=== PATIENT | female | born 1950 | race Caucasian/White ===

== ENCOUNTER 2018-06-26 14:56 | Emergency (ER) | payer MEDICARE, OTHER ==
[~2018-06-26] VITALS: Ht 154.9 cm; Wt 78.0 kg
[~2018-06-26 14:56] MED LIST: Calcium Magnes1 EAC1 PO; HARVONI 90-4001 EACH PO; HYDACE5 PO; HYDCHL25 PO; PROM25 PO; RANI150 PO; SPIR25 PO
[2018-06-26 16:43] LABS: BASOPHILS ABSOLUTE AUTO 0.05 K/mm3 (0.00-0.23); BASOPHILS PERCENT AUTO 1 % (0-2); EOSINOPHILS PERCENT AUTO 2 % (0-6); Hematocrit 42.3 % (33.0-51.0); Hemoglobin 14.4 g/dL (11.5-16.0); IMMATURE GRAN ABSOLUTE AUTO 0.01 K/mm3 (0.00-0.10); IMMATURE GRAN PERCENT AUTO 0 % (0-1); LYMPHOCYTES ABSOLUTE AUTO 2.24 K/mm3 (0.84-5.20); LYMPHOCYTES PERCENT AUTO 35 % (21-46); MONOCYTES ABSOLUTE AUTO 0.59 K/mm3 (0.16-1.47); MONOCYTES PERCENT AUTO 9 % (4-13); Mean Corpuscular HGB 31.9 pg (26.0-34.0); Mean Corpuscular Volume 94 fL (80-100); Mean Platelet Volume 10.3 fL (9.1-12.4); NEUTROPHILS ABSOLUTE AUTO 3.35 K/mm3 (1.96-9.15); NEUTROPHILS PERCENT AUTO 53 % (41-73); Platelet Count 119 K/mm3 (150-400); RDW Standard Deviation 44.6 fL (35.1-46.3); Red Blood Cell Count 4.51 M/mm3 (3.80-5.20); White Blood Cell Count 6.34 K/mm3 (4.00-11.30)
[2018-06-26 17:01] LABS: Alanine Aminotransfer (ALT/SGP 36 U/L (12-78); Albumin, Blood 3.7 g/dL (3.4-5.0); Albumin/Globulin Ratio 0.9 (0.8-1.8); Alk Phos 141 U/L (50-136); Anion Gap 8 mmol/L (6-16); Aspartate Aminotrans (AST/SGOT 35 U/L (12-37); Blood Urea Nitrogen 14 mg/dL (8-24); Bun/Creatinine Ratio 16.1 (12.0-20.0); CO2, Blood 26 mmol/L (21-32); Calcium, Blood 8.8 mg/dL (8.5-10.1); Chloride, Blood 107 mmol/L (98-108); Creatinine, Blood 0.87 mg/dL (0.40-1.00); Globulin, Blood 4.2 g/dL (2.2-4.0); Glomerular Filtration Rate >60 (60-); Glucose, Blood 81 mg/dL (70-99); Potassium, Blood 3.7 mmol/L (3.5-5.5); Sodium, Blood 141 mmol/L (136-145); Total Protein, Blood 7.9 g/dL (6.4-8.2); Troponin I <0.015 ng/mL (0.000-0.040)
[2018-06-26] MEDS ORDERED: FURO20 (17:12)
[2018-06-26] MEDS ORDERED: Omeprazole20 M1 (17:12)
[2018-06-26 17:14] LABS: Source, Urine Clean Catch
[2018-06-26 17:19] LABS: Bilirubin, Urine Neg (Neg); Blood, Urine 1+ (Neg); Glucose Qualitative, Urine Neg (Neg); Ketones, Urine Neg (Neg); Leukocyte Esterase, Urine 1+ (Neg); Nitrite, Urine Neg (Neg); Protein, Urine Neg (Neg); Urobilinogen, Urine NORM (Normal)
[2018-06-26 17:25] LABS: Appearance, Urine Hazy (Clear); Color, Urine Yellow (P-Yellow)
[2018-06-26 17:27] LABS: Bacteria Few /hpf; Red Blood Cells, Urine 0-2 /hpf (0-2); Squamous Epithelial Cells Few /hpf (Few)
== END 2018-06-26 18:10 | disposition home or self-care (01) ==
LOC: ER 14:56
PROVIDERS: Emergency Medicine; Physician Assistant
DX: R07.89 Other chest pain (principal); I10 Essential (primary) hypertension; Z88.0 Allergy status to penicillin; Z88.2 Allergy status to sulfonamides; Z88.1 Allergy status to other antibiotic agents; Z79.899 Other long term (current) drug therapy; Z87.891 Personal history of nicotine dependence
CPT/HCPCS: 36415; 71046; 80053; 81001; 84484; 85025; 87086; 93005; 93010; 99284-25

== ENCOUNTER 2019-04-08 03:21 | Emergency (ER) | payer MEDICARE, OTHER ==
[~2019-04-08] VITALS: Ht 162.6 cm; Wt 74.8 kg
[~2019-04-08 03:21] MED LIST changes: +Aspirin EC81 MG PO; +FURO20 PO; +LOSA25 PO; +MAGOXI400 PO; +Multivitamin1 EAC1 PO; +Omeprazole20 M1 PO
[2019-07-31] MEDS ORDERED: ONE DAILY MULT PO (10:37)
[2019-07-31] MEDS ORDERED: Natrol 5-Htp50 MG PO (10:38)
[2019-07-31] MEDS ORDERED: Calcium Magnes1 EAC1 PO (10:38)
== END 2019-04-08 05:38 | disposition home or self-care (01) ==
LOC: ER 03:21
DX: M79.671 Pain in right foot (principal); Z88.0 Allergy status to penicillin; Z88.2 Allergy status to sulfonamides; Z88.1 Allergy status to other antibiotic agents; Z79.899 Other long term (current) drug therapy; Z79.82 Long term (current) use of aspirin; Z87.891 Personal history of nicotine dependence
CPT/HCPCS: 99283

== ENCOUNTER 2019-08-07 10:02 | Day surgery (SDC) | payer MEDICARE, OTHER ==
[~2019-08-07] VITALS: Ht 154.9 cm; Wt 77.1 kg
[~2019-08-07 10:02] MED LIST changes: +Natrol 5-Htp50 MG PO; +ONE DAILY MULT PO
== END 2019-08-07 11:42 | disposition home or self-care (01) ==
LOC: ORSCSDS 10:02
PROVIDERS: Internal Medicine Gastroenterology
PROC: 0DJ08ZZ Inspection of Upper Intestinal Tract, Via Natural or Artificial Opening Endoscopic (ICD-10-PCS; principal; 2019-08-07 12:00)
DX: I85.00 Esophageal varices without bleeding (principal); K74.60 Unspecified cirrhosis of liver; K22.2 Esophageal obstruction; K76.6 Portal hypertension; K31.89 Other diseases of stomach and duodenum; J45.909 Unspecified asthma, uncomplicated; I10 Essential (primary) hypertension; E66.9 Obesity, unspecified; Z68.32 Body mass index [BMI] 32.0-32.9, adult; Z79.899 Other long term (current) drug therapy
CPT/HCPCS: J2704; J7120

== ENCOUNTER 2019-11-02 19:48 | Inpatient (IN) | payer MEDICARE, OTHER ==
[~2019-11-02] VITALS: Ht 154.9 cm; Wt 77.8 kg
[2019-11-02 20:40] LABS: BASOPHILS ABSOLUTE AUTO 0.05 K/mm3 (0.00-0.23); BASOPHILS PERCENT AUTO 1 % (0-2); EOSINOPHILS ABSOLUTE AUTO 0.11 K/mm3 (0.00-0.68); EOSINOPHILS PERCENT AUTO 2 % (0-6); Hemoglobin 15.2 g/dL (11.5-16.0); IMMATURE GRAN ABSOLUTE AUTO 0.01 K/mm3 (0.00-0.10); IMMATURE GRAN PERCENT AUTO 0 % (0-1); LYMPHOCYTES ABSOLUTE AUTO 1.12 K/mm3 (0.84-5.20); LYMPHOCYTES PERCENT AUTO 21 % (21-46); MONOCYTES ABSOLUTE AUTO 0.27 K/mm3 (0.16-1.47); MONOCYTES PERCENT AUTO 5 % (4-13); Mean Corpuscular HGB 31.3 pg (26.0-34.0); Mean Corpuscular Volume 95 fL (80-100); Mean Platelet Volume 9.6 fL (9.1-12.4); NEUTROPHILS PERCENT AUTO 72 % (41-73); Platelet Count 146 K/mm3 (150-400); RDW Coefficient Variation 13.1 % (11.7-14.2); RDW Standard Deviation 45.6 fL (35.1-46.3); Red Blood Cell Count 4.86 M/mm3 (3.80-5.20); White Blood Cell Count 5.46 K/mm3 (4.00-11.30)
[2019-11-02 20:55] LABS: International Normalized Ratio 1.07; Prothrombin Time Results 11.3 Sec (9.7-11.5)
[2019-11-02] MEDS ORDERED: ASCO500 PO (20:59)
[2019-11-02 21:03] LABS: Alanine Aminotransfer (ALT/SGP 107 U/L (12-78); Alk Phos 137 U/L (50-136); Anion Gap 6 mmol/L (6-16); Aspartate Aminotrans (AST/SGOT 88 U/L (12-37); Bilirubin, Direct 0.4 mg/dL (0.0-0.3); Bilirubin, Indirect 1.2 mg/dL (0.1-0.7); Bilirubin, Total 1.6 mg/dL (0.1-1.0); Blood Urea Nitrogen 13 mg/dL (8-24); Bun/Creatinine Ratio 16.6 (12.0-20.0); CO2, Blood 27 mmol/L (21-32); Chloride, Blood 105 mmol/L (98-108); Creatinine, Blood 0.78 mg/dL (0.40-1.00); Globulin, Blood 4.1 g/dL (2.2-4.0); Glomerular Filtration Rate >60 (60-); Glucose, Blood 117 mg/dL (70-99); Potassium, Blood 3.5 mmol/L (3.5-5.5); Sodium, Blood 138 mmol/L (136-145); Total Protein, Blood 8.1 g/dL (6.4-8.2); Troponin I <0.015 ng/mL (0.000-0.040)
[2019-11-02 21:12] LABS: Source, Urine Clean Catch
[2019-11-02 21:14] LABS: Bilirubin, Urine Neg (Neg); Blood, Urine 1+ (Neg); Glucose Qualitative, Urine Neg (Neg); Ketones, Urine Neg (Neg); Leukocyte Esterase, Urine Neg (Neg); Nitrite, Urine Neg (Neg); Protein, Urine Neg (Neg); Specific Gravity, Urine 1.015 (1.003-1.022); Urobilinogen, Urine 1+ (Normal)
[2019-11-02 21:16] LABS: Appearance, Urine Clear (Clear); Color, Urine Yellow (P-Yellow)
[2019-11-02 21:21] LABS: Bacteria Rare /hpf; Red Blood Cells, Urine 0-2 /hpf (0-2); Squamous Epithelial Cells Few /hpf (Few); White Blood Cells, Urine 0-2 /hpf (0-5)
--- NOTE | 2019-11-03 04:06 | NUR ---
SHIFT SUMMARY PT NEW ADMIT THIS SHIFT. AAOX4. NPO THIS AM. PT REPORTING ABD DISCOMFORT X3 DAYS, CONTROLLED WITH 50mcg FENTANYL X1 SINCE ADMISSION TO FLOOR. NO NAUSEA/EMESIS. PT ORIENTED TO ROOM + CALL LIGHT USE. RESTING WELL AT THIS TIME, IVF PER ORDERS WITH CALL LIGHT IN REACH.
--- NOTE | 2019-11-03 14:00 | NUR ---
PT RETURNED TO ROOM FROM PACU A&OX4, VSS, S/P LAP CARMEN WITH 4 GAUZE DRESSINGS, ELIZABETH DRAIN W/SS DRAINAGE, AMB SBA TO BRP, VOIDING WELL, DENIES PAIN AT THIS TIME, JUDITH PO CL DIET.
--- NOTE | 2019-11-03 16:08 | NUR ---
SHIFT SUMMARY PT A&OX4, VSS, S/P LAP CARMEN, 4 GAUZE SITES CDI, ELIZABETH W/SS DRAINAGE. PAIN MANAGED WITH 5 MG OXY. DENIES N&V AT THIS TIME; ZOFRAN GIVEN 1X. VOIDING WELL. AMB SBA TO BRP. REPOSITIONS SELF WELL. WILL REPORT TO ONCOMING NOC RN.
--- NOTE | 2019-11-04 04:55 | NUR ---
SHIFT SUMMARY PT POD#1 LAP CARMEN. AAOX4. ABD INCISIONS WITH GAUZE C/D/I + ELIZABETH SECURE/DRAINING 55cc AMOUNT SS. DISCOMFORT CONTROLLED WITH 1 ROXICODONE Q4-5P. NO NAUSEA/EMESIS. PT UP AMBULATING IN HALLS THIS AM, TOLERATING DIET WELL + GOOD URINE OUTPUT. NO ACUTE CHANGES OVER NIGHT.
[2019-11-04 05:09] LABS: BASOPHILS ABSOLUTE AUTO 0.03 K/mm3 (0.00-0.23); BASOPHILS PERCENT AUTO 0 % (0-2); EOSINOPHILS ABSOLUTE AUTO 0.02 K/mm3 (0.00-0.68); EOSINOPHILS PERCENT AUTO 0 % (0-6); Hematocrit 42.2 % (33.0-51.0); Hemoglobin 13.8 g/dL (11.5-16.0); IMMATURE GRAN ABSOLUTE AUTO 0.03 K/mm3 (0.00-0.10); IMMATURE GRAN PERCENT AUTO 0 % (0-1); LYMPHOCYTES ABSOLUTE AUTO 1.12 K/mm3 (0.84-5.20); LYMPHOCYTES PERCENT AUTO 13 % (21-46); MONOCYTES PERCENT AUTO 5 % (4-13); Mean Corpuscular HGB 31.5 pg (26.0-34.0); Mean Corpuscular HGB Conc 32.7 g/dL (31.5-36.5); Mean Corpuscular Volume 96 fL (80-100); Mean Platelet Volume 9.9 fL (9.1-12.4); NEUTROPHILS ABSOLUTE AUTO 7.08 K/mm3 (1.96-9.15); NEUTROPHILS PERCENT AUTO 82 % (41-73); Platelet Count 129 K/mm3 (150-400); RDW Standard Deviation 46.8 fL (35.1-46.3); Red Blood Cell Count 4.38 M/mm3 (3.80-5.20); White Blood Cell Count 8.68 K/mm3 (4.00-11.30)
[2019-11-04 05:31] LABS: Alanine Aminotransfer (ALT/SGP 224 U/L (12-78); Albumin, Blood 3.1 g/dL (3.4-5.0); Albumin/Globulin Ratio 0.9 (0.8-1.8); Alk Phos 118 U/L (50-136); Anion Gap 7 mmol/L (6-16); Aspartate Aminotrans (AST/SGOT 233 U/L (12-37); Bilirubin, Total 4.6 mg/dL (0.1-1.0); Blood Urea Nitrogen 11 mg/dL (8-24); Bun/Creatinine Ratio 14.1 (12.0-20.0); CO2, Blood 24 mmol/L (21-32); Calcium, Blood 8.5 mg/dL (8.5-10.1); Chloride, Blood 110 mmol/L (98-108); Creatinine, Blood 0.78 mg/dL (0.40-1.00); Globulin, Blood 3.5 g/dL (2.2-4.0); Glomerular Filtration Rate >60 (60-); Glucose, Blood 115 mg/dL (70-99); Potassium, Blood 4.3 mmol/L (3.5-5.5); Sodium, Blood 141 mmol/L (136-145); Total Protein, Blood 6.6 g/dL (6.4-8.2)
--- NOTE | 2019-11-04 17:05 | NUR ---
SHIFT SUMMARY PT A&OX4, VSS, POD1 LAP CARMEN, 4 GAUZE DRESSINGS, ELIZABETH WITH 60 MLS OUT TODAY. PAIN MANAGED WITH FENT 12.5 AND OXYCODONE 5 MG. PT WAS NPO FROM 1000 TO 1400 WHEN SHE WENT FOR MRI. PLAN: MRI SHOWS NO NEED FOR REFERRAL [facility]. LAB DRAW IN AM AND POSSIBLE CONSULT WITH GI DR KIM FOR LIVER ENZYMES ELEVATION. JUDITH PO, DENIES N&V. VOIDING WELL. AMB INDEPENDENT TO [facility]. WILL REPORT TO ONCOMING NOC RN.
[2019-11-05 04:35] LABS: Alanine Aminotransfer (ALT/SGP 138 U/L (12-78); Albumin, Blood 2.8 g/dL (3.4-5.0); Albumin/Globulin Ratio 0.9 (0.8-1.8); Alk Phos 97 U/L (50-136); Anion Gap 5 mmol/L (6-16); Aspartate Aminotrans (AST/SGOT 91 U/L (12-37); Bilirubin, Total 0.8 mg/dL (0.1-1.0); Blood Urea Nitrogen 11 mg/dL (8-24); Bun/Creatinine Ratio 13.3 (12.0-20.0); CO2, Blood 28 mmol/L (21-32); Calcium, Blood 8.1 mg/dL (8.5-10.1); Chloride, Blood 107 mmol/L (98-108); Creatinine, Blood 0.82 mg/dL (0.40-1.00); Globulin, Blood 3.1 g/dL (2.2-4.0); Glomerular Filtration Rate >60 (60-); Glucose, Blood 105 mg/dL (70-99); Potassium, Blood 3.7 mmol/L (3.5-5.5); Sodium, Blood 140 mmol/L (136-145); Total Protein, Blood 5.9 g/dL (6.4-8.2)
--- NOTE | 2019-11-05 07:18 | NUR ---
11/05/19 0718 Maryellen Blanco VERIFICATIONS: EDIT CHART.
--- NOTE | 2019-11-05 08:06 | NUR ---
SHIFT SUMMARY PT POD#2 LAP CARMEN. AAOX4. DISCOMFORT CONTROLLED WITH 1 ROXICODONE X2 THIS SHIFT. NO NAUSEA/EMESIS. ABD INCISION WITH GAUZE C/D/I X3 WITH ELIZABETH WITH 35cc SS OUT. PT RESTED WELL T/O NIGHT. INDEPENDENT. OUT IN HALLS TO AMBULATE. NO ACUTE CHANGES OVER NIGHT. PT RESTING AT THIS TIME, REPORT TO DAY SHIFT RN, CALL LIGHT WITHIN REACH.
[2019-11-05] MEDS ORDERED: OXYC5 PO (09:33)
[2019-11-05] MEDS ORDERED: MIRALAX17 GM PO (09:33)
--- NOTE | 2019-11-05 10:24 | NUR ---
DISCHARGE PT WAS D/C'D VIA W/C. SCRIPT GIVEN. PAIN WELL CONTROLLED, DECLINED MEDS PRIOR TO D/C. TOLERATING DIET, VOIDING, AND PASSING GAS. DISCUSSED BOWEL CARE.
== END 2019-11-05 10:17 | disposition home or self-care (01) | DRG 419 ==
LOC: ER 19:48 → SURS 19:49
PROVIDERS: Physician Assistant; ADMIT Surgery
PROC: BF03YZZ Plain Radiography of Gallbladder and Bile Ducts using Other Contrast (ICD-10-PCS; 2019-11-03)
PROC: 3E02340 Introduction of Influenza Vaccine into Muscle, Percutaneous Approach (ICD-10-PCS; 2019-11-03)
PROC: 0FT44ZZ Resection of Gallbladder, Percutaneous Endoscopic Approach (ICD-10-PCS; principal; 2019-11-03 10:30)
DX: K80.62 Calculus of gallbladder and bile duct with acute cholecystitis without obstruction (principal); K74.60 Unspecified cirrhosis of liver; I10 Essential (primary) hypertension; Z88.1 Allergy status to other antibiotic agents; Z88.0 Allergy status to penicillin; Z88.2 Allergy status to sulfonamides; Z87.891 Personal history of nicotine dependence; Z86.19 Personal history of other infectious and parasitic diseases; Z23 Encounter for immunization
CPT/HCPCS: 36415; 74181; 74300; 76705; 80048; 80053; 80076; 81001; 83690; 84484; 85025; 85610; 88304; 90686; 93005; 93010; 96365; 96372; 96375; 96376; 99285-25; C1729; G0008; G0378; J0694; J1100; J1650; J1885; J2405; J2704; J2710; J3010; J7030; J7120

== ENCOUNTER → 2019-11-29 | Outpatient (CLI) | payer MEDICARE, OTHER ==
[~2019-11-29] MED LIST changes: +ASCO500 PO; +MIRALAX17 GM PO; +OXYC5 PO
[2019-11-29 10:16] LABS: BASOPHILS ABSOLUTE AUTO 0.08 K/mm3 (0.00-0.23); BASOPHILS PERCENT AUTO 1 % (0-2); EOSINOPHILS ABSOLUTE AUTO 0.24 K/mm3 (0.00-0.68); EOSINOPHILS PERCENT AUTO 4 % (0-6); Hematocrit 44.1 % (33.0-51.0); Hemoglobin 14.5 g/dL (11.5-16.0); IMMATURE GRAN ABSOLUTE AUTO 0.03 K/mm3 (0.00-0.10); IMMATURE GRAN PERCENT AUTO 1 % (0-1); LYMPHOCYTES ABSOLUTE AUTO 1.99 K/mm3 (0.84-5.20); LYMPHOCYTES PERCENT AUTO 34 % (21-46); MONOCYTES ABSOLUTE AUTO 0.49 K/mm3 (0.16-1.47); MONOCYTES PERCENT AUTO 8 % (4-13); Mean Corpuscular HGB 31.4 pg (26.0-34.0); Mean Corpuscular HGB Conc 32.9 g/dL (31.5-36.5); Mean Corpuscular Volume 96 fL (80-100); Mean Platelet Volume 10.1 fL (9.1-12.4); NEUTROPHILS ABSOLUTE AUTO 3.08 K/mm3 (1.96-9.15); NEUTROPHILS PERCENT AUTO 52 % (41-73); Platelet Count 143 K/mm3 (150-400); RDW Coefficient Variation 13.2 % (11.7-14.2); RDW Standard Deviation 46.5 fL (35.1-46.3); Red Blood Cell Count 4.62 M/mm3 (3.80-5.20); White Blood Cell Count 5.91 K/mm3 (4.00-11.30)
[2019-11-29 10:36] LABS: Alanine Aminotransfer (ALT/SGP 31 U/L (12-78); Albumin, Blood 3.8 g/dL (3.4-5.0); Alk Phos 103 U/L (50-136); Anion Gap 7 mmol/L (6-16); Aspartate Aminotrans (AST/SGOT 29 U/L (12-37); Bilirubin, Total 0.9 mg/dL (0.1-1.0); Blood Urea Nitrogen 15 mg/dL (8-24); Bun/Creatinine Ratio 17.5 (12.0-20.0); CO2, Blood 28 mmol/L (21-32); Calcium, Blood 9.4 mg/dL (8.5-10.1); Chloride, Blood 110 mmol/L (98-108); Creatinine, Blood 0.86 mg/dL (0.40-1.00); Globulin, Blood 3.9 g/dL (2.2-4.0); Glomerular Filtration Rate >60 (60-); Glucose, Blood 100 mg/dL (70-99); Potassium, Blood 3.5 mmol/L (3.5-5.5); Sodium, Blood 145 mmol/L (136-145); Total Protein, Blood 7.7 g/dL (6.4-8.2)
== END | disposition home or self-care (01) ==
LOC: LAB 10:05 → LAB SHORT 10:05
PROVIDERS: Nurse Practitioner Family
DX: R07.9 Chest pain, unspecified (principal)
CPT/HCPCS: 80053; 85025

== ENCOUNTER 2020-01-15 21:41 | Observation (INO) | payer MEDICARE, OTHER ==
[~2020-01-15] VITALS: Ht 154.9 cm; Wt 77.2 kg
[2020-01-15 22:10] LABS: BASOPHILS ABSOLUTE AUTO 0.06 K/mm3 (0.00-0.23); BASOPHILS PERCENT AUTO 1 % (0-2); EOSINOPHILS ABSOLUTE AUTO 0.09 K/mm3 (0.00-0.68); EOSINOPHILS PERCENT AUTO 1 % (0-6); Hematocrit 45.1 % (33.0-51.0); IMMATURE GRAN ABSOLUTE AUTO 0.02 K/mm3 (0.00-0.10); IMMATURE GRAN PERCENT AUTO 0 % (0-1); LYMPHOCYTES ABSOLUTE AUTO 2.01 K/mm3 (0.84-5.20); LYMPHOCYTES PERCENT AUTO 24 % (21-46); MONOCYTES ABSOLUTE AUTO 0.67 K/mm3 (0.16-1.47); MONOCYTES PERCENT AUTO 8 % (4-13); Mean Corpuscular HGB 31.3 pg (26.0-34.0); Mean Corpuscular HGB Conc 33.3 g/dL (31.5-36.5); Mean Corpuscular Volume 94 fL (80-100); Mean Platelet Volume 9.9 fL (9.1-12.4); NEUTROPHILS ABSOLUTE AUTO 5.41 K/mm3 (1.96-9.15); NEUTROPHILS PERCENT AUTO 66 % (41-73); Platelet Count 163 K/mm3 (150-400); RDW Standard Deviation 45.1 fL (35.1-46.3); White Blood Cell Count 8.26 K/mm3 (4.00-11.30)
[2020-01-15 22:30] LABS: Alanine Aminotransfer (ALT/SGP 43 U/L (12-78); Alk Phos 132 U/L (50-136); Anion Gap 7 mmol/L (6-16); Aspartate Aminotrans (AST/SGOT 36 U/L (12-37); Bilirubin, Total 1.2 mg/dL (0.1-1.0); Blood Urea Nitrogen 15 mg/dL (8-24); Bun/Creatinine Ratio 19.8 (12.0-20.0); CO2, Blood 26 mmol/L (21-32); Calcium, Blood 9.3 mg/dL (8.5-10.1); Chloride, Blood 107 mmol/L (98-108); Creatinine, Blood 0.76 mg/dL (0.40-1.00); Globulin, Blood 4.2 g/dL (2.2-4.0); Glomerular Filtration Rate >60 (60-); Glucose, Blood 118 mg/dL (70-99); Potassium, Blood 3.9 mmol/L (3.5-5.5); Sodium, Blood 140 mmol/L (136-145); Total Protein, Blood 8.2 g/dL (6.4-8.2)
[2020-01-16 02:07] LABS: Source, Urine Clean Catch
[2020-01-16 02:09] LABS: Bilirubin, Urine Neg (Neg); Blood, Urine 1+ (Neg); Glucose Qualitative, Urine Neg (Neg); Ketones, Urine Neg (Neg); Leukocyte Esterase, Urine Neg (Neg); Nitrite, Urine Neg (Neg); Protein, Urine Neg (Neg); Specific Gravity, Urine 1.005 (1.003-1.022); Urobilinogen, Urine 1+ (Normal)
[2020-01-16 02:14] LABS: Appearance, Urine Clear (Clear); Color, Urine Yellow (P-Yellow)
[2020-01-16 02:19] LABS: Bacteria Few /hpf; Red Blood Cells, Urine 0-2 /hpf (0-2); Squamous Epithelial Cells Not Seen /hpf (Few); White Blood Cells, Urine 0-2 /hpf (0-5)
--- NOTE | 2020-01-16 03:40 | NUR ---
FACILITY COORDINATOR REPORT PT NEW ADMIT FROM ER. ARRIVED TO UNIT VIA STRETCHER AT 0039. PT WAS INTRODUCED TO ROOM AND STAFF. A/O X4. NO FACIAL DROOP OR SLURRED SPEECH NOTED. HOWEVER, PT STATES SHE CAN FEEL SOME R EYE LID DROOPING. DENIES PAIN, NAUSEA, SOB. VITALS STABLE. CALL LIGHT WITHIN REACH. PLEASANT AND COOPERATIVE.
[2020-01-16 10:15] LABS: Hematocrit 40.6 % (33.0-51.0); Hemoglobin 13.5 g/dL (11.5-16.0); Mean Corpuscular HGB 31.6 pg (26.0-34.0); Mean Corpuscular HGB Conc 33.3 g/dL (31.5-36.5); Mean Corpuscular Volume 95 fL (80-100); Mean Platelet Volume 10.1 fL (9.1-12.4); Platelet Count 119 K/mm3 (150-400); RDW Coefficient Variation 13.2 % (11.7-14.2); RDW Standard Deviation 45.8 fL (35.1-46.3); Red Blood Cell Count 4.27 M/mm3 (3.80-5.20); White Blood Cell Count 4.89 K/mm3 (4.00-11.30)
[2020-01-16 10:33] LABS: Alanine Aminotransfer (ALT/SGP 37 U/L (12-78); Albumin, Blood 3.4 g/dL (3.4-5.0); Alk Phos 103 U/L (50-136); Anion Gap 6 mmol/L (6-16); Aspartate Aminotrans (AST/SGOT 28 U/L (12-37); Bilirubin, Total 1.3 mg/dL (0.1-1.0); Blood Urea Nitrogen 12 mg/dL (8-24); Bun/Creatinine Ratio 16.1 (12.0-20.0); CO2, Blood 26 mmol/L (21-32); Calcium, Blood 8.6 mg/dL (8.5-10.1); Chloride, Blood 111 mmol/L (98-108); Creatinine, Blood 0.75 mg/dL (0.40-1.00); Globulin, Blood 3.4 g/dL (2.2-4.0); Glomerular Filtration Rate >60 (60-); Glucose, Blood 115 mg/dL (70-99); Potassium, Blood 3.8 mmol/L (3.5-5.5); Sodium, Blood 143 mmol/L (136-145); Total Protein, Blood 6.8 g/dL (6.4-8.2)
--- NOTE | 2020-01-16 15:27 | NUR ---
Echocardiogram completed.
--- NOTE | 2020-01-16 19:00 | NUR ---
PT. SITTING IN BED, A&O NO S/S OF DISTRESS. PT. SPOUSE CALLED ME TO THE ROOM TO WITNESS ONE OF HER TIA'S. PT. WAS SITTING UP STARING STRAIGHT AHEAD, WAS ABLE TO TALK TO ME BUT SLOWLY. APPEARED TO ME THIS IS MORE OF A SEIZURE ACTIVITY THAN A TIA. THE SCENIC ARTIST FELT THE SAME WAY AFTER HE WITNESSED ONE. ONLY TWO EPISODE THIS SHIFT. MAYBE A NEUROLOGY APPOINTMENT AN OUTPATIENT WOULD BE IN ORDER. PT. HAS HAD NO PAIN THIS SHIFT.
--- NOTE | 2020-01-17 05:53 | NUR ---
SHIFT SUMMARY: VSS. AFEB. A/OX3. MAKES NEEDS KNOWN. NO REPORTS OF SLOWED THINKING/SLOWED RESPONSE, OR UNRESPONSIVENESS TONIGHT. PT TO HAVE MRI TODAY. NO ACUTE CHANGES OVERNIGHT. WILL CONT TO MONITOR.
[2020-01-17] MEDS ORDERED: ATORVASTATIN CA40 M1 PO (11:18)
[2020-01-17] MEDS ORDERED: ASPI81CH PO (11:18)
--- NOTE | 2020-01-17 11:37 | NUR ---
DISCHARGE INSTRUCTIONS GIVEN TO PATIENT WITH AT BEDSIDE. EDUCATIONAL MATERIAL PROVIDED. IV's X2 REMOVED AND TELE BOX DISCONTINUED AND RETURNED TO PCU. PATIENT IN ROOM GETTING READY TO DISCHARGE HOME. TO TRANSPORT PATIENT HOME.
--- NOTE | 2020-01-17 11:42 | NUR ---
PATIENT DISCHARGED HOME AT 1142. NURSE ASSISTED PATIENT OUT TO VEHICLE IN WHEELCHAIR.
== END 2020-01-17 12:00 | disposition home or self-care (01) ==
LOC: ER 21:41 → MEDS 21:42
PROVIDERS: Nurse Practitioner; ADMIT Internal Medicine
DX: G45.9 Transient cerebral ischemic attack, unspecified (principal); K74.60 Unspecified cirrhosis of liver; I10 Essential (primary) hypertension; K21.9 Gastro-esophageal reflux disease without esophagitis; Z79.899 Other long term (current) drug therapy; Z88.8 Allergy status to other drugs, medicaments and biological substances; Z88.2 Allergy status to sulfonamides; Z88.0 Allergy status to penicillin; Z88.1 Allergy status to other antibiotic agents
CPT/HCPCS: 36415; 70450; 70496; 70498; 70551; 80053; 81001; 82947; 85025; 85027; 93005; 93010; 93306; 96360; 96361; 96372; 99285-25; A9270-GY; G0378; J1650; J7030; Q9967

== ENCOUNTER 2020-05-20 12:02 | Day surgery (SDC) | payer MEDICARE, OTHER ==
[~2020-05-20] VITALS: Ht 154.9 cm; Wt 77.7 kg
[~2020-05-20 12:02] MED LIST changes: +ASPI81CH PO; +ATORVASTATIN CA40 M1 PO
== END 2020-05-20 13:40 | disposition home or self-care (01) ==
LOC: ORSCSDS 12:02
PROVIDERS: Internal Medicine Gastroenterology
PROC: 0DJ08ZZ Inspection of Upper Intestinal Tract, Via Natural or Artificial Opening Endoscopic (ICD-10-PCS; principal; 2020-05-20 13:30)
DX: I85.00 Esophageal varices without bleeding (principal); K44.9 Diaphragmatic hernia without obstruction or gangrene; K22.2 Esophageal obstruction; J45.909 Unspecified asthma, uncomplicated; F41.9 Anxiety disorder, unspecified; K21.9 Gastro-esophageal reflux disease without esophagitis; K74.60 Unspecified cirrhosis of liver; Z87.891 Personal history of nicotine dependence; E66.9 Obesity, unspecified; Z68.31 Body mass index [BMI] 31.0-31.9, adult; Z79.899 Other long term (current) drug therapy
CPT/HCPCS: J2704; J7120

== ENCOUNTER 2021-04-09 15:55 | Emergency (ER) | payer MEDICARE, OTHER ==
[~2021-04-09] VITALS: Ht 154.9 cm; Wt 77.1 kg
[2021-04-09] MEDS ORDERED: LOSA50 PO (16:18)
[2021-04-09] MEDS ORDERED: Aldactone50 MG PO (16:18)
[2021-04-09] MEDS ORDERED: OXYC5 PO (18:37)
== END 2021-04-09 19:13 | disposition home or self-care (01) ==
LOC: ER 15:55
DX: S92.321A Displaced fracture of second metatarsal bone, right foot, initial encounter for closed fracture (principal); S92.331A Displaced fracture of third metatarsal bone, right foot, initial encounter for closed fracture; S92.341A Displaced fracture of fourth metatarsal bone, right foot, initial encounter for closed fracture; S92.351A Displaced fracture of fifth metatarsal bone, right foot, initial encounter for closed fracture; S20.212A Contusion of left front wall of thorax, initial encounter; S09.90XA Unspecified injury of head, initial encounter; I10 Essential (primary) hypertension; Z87.891 Personal history of nicotine dependence; W17.89XA Other fall from one level to another, initial encounter; Y92.008 Other place in unspecified non-institutional (private) residence as the place of occurrence of the external cause
CPT/HCPCS: 29515; 70450; 71101; 72100; 73610; 73630; 99284-25; A9270

== ENCOUNTER 2021-04-14 19:15 | Emergency (ER) | payer MEDICARE, OTHER ==
[~2021-04-14 19:15] MED LIST changes: +Aldactone50 MG PO; +LOSA50 PO
[2021-04-14 21:54] LABS: BASOPHILS ABSOLUTE AUTO 0.06 K/mm3 (0.00-0.23); BASOPHILS PERCENT AUTO 1 % (0-2); EOSINOPHILS ABSOLUTE AUTO 0.16 K/mm3 (0.00-0.68); EOSINOPHILS PERCENT AUTO 3 % (0-6); Hematocrit 39.4 % (33.0-51.0); Hemoglobin 13.2 g/dL (11.5-16.0); IMMATURE GRAN ABSOLUTE AUTO 0.01 K/mm3 (0.00-0.10); IMMATURE GRAN PERCENT AUTO 0 % (0-1); LYMPHOCYTES ABSOLUTE AUTO 1.31 K/mm3 (0.84-5.20); LYMPHOCYTES PERCENT AUTO 26 % (21-46); MONOCYTES ABSOLUTE AUTO 0.47 K/mm3 (0.16-1.47); MONOCYTES PERCENT AUTO 9 % (4-13); Mean Corpuscular HGB 30.1 pg (26.0-34.0); Mean Corpuscular HGB Conc 33.5 g/dL (31.5-36.5); Mean Corpuscular Volume 90 fL (80-100); Mean Platelet Volume 9.7 fL (9.1-12.4); NEUTROPHILS ABSOLUTE AUTO 3.06 K/mm3 (1.96-9.15); NEUTROPHILS PERCENT AUTO 60 % (41-73); Platelet Count 144 K/mm3 (150-400); RDW Coefficient Variation 13.8 % (11.7-14.2); RDW Standard Deviation 45.8 fL (35.1-46.3); Red Blood Cell Count 4.38 M/mm3 (3.80-5.20); White Blood Cell Count 5.07 K/mm3 (4.00-11.30)
[2021-04-14 22:06] LABS: Alanine Aminotransfer (ALT/SGP 32 U/L (12-78); Albumin, Blood 3.6 g/dL (3.4-5.0); Alk Phos 106 U/L (50-136); Anion Gap 6 mmol/L (6-16); Aspartate Aminotrans (AST/SGOT 26 U/L (12-37); Bilirubin, Total 0.6 mg/dL (0.1-1.0); Blood Urea Nitrogen 12 mg/dL (8-24); Bun/Creatinine Ratio 17.9 (12.0-20.0); CO2, Blood 26 mmol/L (21-32); Calcium, Blood 8.9 mg/dL (8.5-10.1); Chloride, Blood 108 mmol/L (98-108); Creatinine, Blood 0.67 mg/dL (0.40-1.00); Globulin, Blood 3.6 g/dL (2.2-4.0); Glomerular Filtration Rate >60 (60-); Glucose, Blood 109 mg/dL (70-99); Potassium, Blood 3.6 mmol/L (3.5-5.5); Sodium, Blood 140 mmol/L (136-145); Total Protein, Blood 7.2 g/dL (6.4-8.2); Troponin I <0.015 ng/mL (0.000-0.040)
[2021-04-14 22:47] LABS: Source, Urine Clean Catch
[2021-04-14 22:50] LABS: Bilirubin, Urine Neg (Neg); Blood, Urine 1+ (Neg); Glucose Qualitative, Urine Neg (Neg); Ketones, Urine Neg (Neg); Leukocyte Esterase, Urine Neg (Neg); Nitrite, Urine Neg (Neg); Protein, Urine Neg (Neg); Urobilinogen, Urine 1+ (Normal)
[2021-04-14 22:55] LABS: Appearance, Urine Clear (Clear); Color, Urine Yellow (P-Yellow)
[2021-04-14 22:56] LABS: Bacteria Rare /hpf; Red Blood Cells, Urine 0-2 /hpf (0-2); Squamous Epithelial Cells Few /hpf (Few)
== END 2021-04-15 02:37 | disposition home or self-care (01) ==
LOC: ER 19:15
PROVIDERS: Emergency Medicine
DX: S22.32XA Fracture of one rib, left side, initial encounter for closed fracture (principal); S30.0XXA Contusion of lower back and pelvis, initial encounter; I10 Essential (primary) hypertension; Z79.899 Other long term (current) drug therapy; Z88.0 Allergy status to penicillin; Z88.2 Allergy status to sulfonamides; Z88.1 Allergy status to other antibiotic agents; Z88.4 Allergy status to anesthetic agent; Z87.891 Personal history of nicotine dependence; W19.XXXA Unspecified fall, initial encounter
CPT/HCPCS: 71045; 74177; 80053; 81001; 83690; 84484; 85025; 93005; 93010; 99284-25; A9270; Q9967

== ENCOUNTER 2021-06-01 15:32 | Emergency (ER) | payer MEDICARE, OTHER ==
[~2021-06-01] VITALS: Ht 149.9 cm; Wt 76.2 kg
[~2021-06-01 15:32] MED LIST changes: +COLESTID1 G1 PO; +HYDHCL25 PO; +OMEP20ER PO
[2021-06-01 16:32] LABS: BASOPHILS ABSOLUTE AUTO 0.04 K/mm3 (0.00-0.23); BASOPHILS PERCENT AUTO 1 % (0-2); EOSINOPHILS ABSOLUTE AUTO 0.07 K/mm3 (0.00-0.68); EOSINOPHILS PERCENT AUTO 2 % (0-6); Hematocrit 39.5 % (33.0-51.0); Hemoglobin 13.2 g/dL (11.5-16.0); IMMATURE GRAN ABSOLUTE AUTO 0.01 K/mm3 (0.00-0.10); IMMATURE GRAN PERCENT AUTO 0 % (0-1); LYMPHOCYTES PERCENT AUTO 36 % (21-46); MONOCYTES ABSOLUTE AUTO 0.37 K/mm3 (0.16-1.47); MONOCYTES PERCENT AUTO 8 % (4-13); Mean Corpuscular HGB 31.1 pg (26.0-34.0); Mean Corpuscular HGB Conc 33.4 g/dL (31.5-36.5); Mean Corpuscular Volume 93 fL (80-100); Mean Platelet Volume 9.9 fL (9.1-12.4); NEUTROPHILS ABSOLUTE AUTO 2.38 K/mm3 (1.96-9.15); NEUTROPHILS PERCENT AUTO 53 % (41-73); Platelet Count 144 K/mm3 (150-400); RDW Coefficient Variation 13.5 % (11.7-14.2); RDW Standard Deviation 46.1 fL (35.1-46.3); Red Blood Cell Count 4.24 M/mm3 (3.80-5.20); White Blood Cell Count 4.47 K/mm3 (4.00-11.30)
[2021-06-01 16:55] LABS: Alanine Aminotransfer (ALT/SGP 37 U/L (12-78); Albumin, Blood 3.6 g/dL (3.4-5.0); Albumin/Globulin Ratio 0.9 (0.8-1.8); Alk Phos 112 U/L (50-136); Anion Gap 5 mmol/L (6-16); Aspartate Aminotrans (AST/SGOT 34 U/L (12-37); Bilirubin, Total 0.8 mg/dL (0.1-1.0); Blood Urea Nitrogen 12 mg/dL (8-24); Bun/Creatinine Ratio 13.3 (12.0-20.0); CO2, Blood 27 mmol/L (21-32); Calcium, Blood 9.1 mg/dL (8.5-10.1); Chloride, Blood 111 mmol/L (98-108); Globulin, Blood 3.9 g/dL (2.2-4.0); Glomerular Filtration Rate >60 (60-); Glucose, Blood 104 mg/dL (70-99); Magnesium, Blood 2.3 mg/dL (1.6-2.4); Potassium, Blood 3.4 mmol/L (3.5-5.5); Sodium, Blood 143 mmol/L (136-145); Total Protein, Blood 7.5 g/dL (6.4-8.2)
[2021-06-01 17:22] LABS: Source, Urine Clean Catch
[2021-06-01 17:27] LABS: Appearance, Urine Clear (Clear); Bilirubin, Urine Neg (Neg); Blood, Urine 1+ (Neg); Color, Urine Yellow (P-Yellow); Glucose Qualitative, Urine Neg (Neg); Ketones, Urine Neg (Neg); Leukocyte Esterase, Urine 1+ (Neg); Nitrite, Urine Neg (Neg); Protein, Urine 2+ (Neg); Specific Gravity, Urine 1.025 (1.003-1.022); Urobilinogen, Urine 2+ (Normal)
[2021-06-01 17:36] LABS: Bacteria Rare /hpf; Red Blood Cells, Urine 0-2 /hpf (0-2); Squamous Epithelial Cells Few /hpf (Few); White Blood Cells, Urine 0-2 /hpf (0-5)
[2021-06-01] MEDS ORDERED: LOSA50 PO (19:08)
== END 2021-06-01 19:44 | disposition home or self-care (01) ==
LOC: ER 15:32
PROVIDERS: Physician Assistant
DX: R56.9 Unspecified convulsions (principal); I10 Essential (primary) hypertension; Z88.0 Allergy status to penicillin; Z88.2 Allergy status to sulfonamides; Z88.1 Allergy status to other antibiotic agents; Z88.4 Allergy status to anesthetic agent; Z79.899 Other long term (current) drug therapy; Z87.891 Personal history of nicotine dependence
CPT/HCPCS: 36415; 70450; 80053; 81001; 83735; 85025; 87086; 93005; 93010; 99285-25

== ENCOUNTER 2021-06-09 07:23 | Day surgery (SDC) | payer MEDICARE, OTHER ==
[~2021-06-09] VITALS: Ht 160 cm; Wt 78.6 kg
== END 2021-06-09 09:19 | disposition home or self-care (01) ==
LOC: ORSCSDS 07:23
PROVIDERS: Internal Medicine Gastroenterology
PROC: 0D758ZZ Dilation of Esophagus, Via Natural or Artificial Opening Endoscopic (ICD-10-PCS; principal; 2021-06-09 08:45)
DX: I85.10 Secondary esophageal varices without bleeding (principal); K22.2 Esophageal obstruction; K44.9 Diaphragmatic hernia without obstruction or gangrene; K74.60 Unspecified cirrhosis of liver; J45.909 Unspecified asthma, uncomplicated; Z86.718 Personal history of other venous thrombosis and embolism; I10 Essential (primary) hypertension; D69.6 Thrombocytopenia, unspecified; Z86.19 Personal history of other infectious and parasitic diseases; Z87.891 Personal history of nicotine dependence
CPT/HCPCS: C1726; J2704; J7120

== ENCOUNTER 2021-12-17 14:59 | Emergency (ER) | payer MEDICARE, OTHER ==
[~2021-12-17] VITALS: Ht 149.9 cm; Wt 67.6 kg
[2021-12-17 16:21] LABS: BASOPHILS ABSOLUTE AUTO 0.04 K/mm3 (0.00-0.23); BASOPHILS PERCENT AUTO 1 % (0-2); EOSINOPHILS ABSOLUTE AUTO 0.15 K/mm3 (0.00-0.68); EOSINOPHILS PERCENT AUTO 3 % (0-6); Hematocrit 43.4 % (33.0-51.0); Hemoglobin 14.7 g/dL (11.5-16.0); IMMATURE GRAN ABSOLUTE AUTO 0.01 K/mm3 (0.00-0.10); IMMATURE GRAN PERCENT AUTO 0 % (0-1); LYMPHOCYTES PERCENT AUTO 26 % (21-46); MONOCYTES ABSOLUTE AUTO 0.46 K/mm3 (0.16-1.47); MONOCYTES PERCENT AUTO 8 % (4-13); Mean Corpuscular HGB 31.8 pg (26.0-34.0); Mean Corpuscular HGB Conc 33.9 g/dL (31.5-36.5); Mean Corpuscular Volume 94 fL (80-100); Mean Platelet Volume 9.8 fL (9.1-12.4); NEUTROPHILS ABSOLUTE AUTO 3.53 K/mm3 (1.96-9.15); NEUTROPHILS PERCENT AUTO 62 % (41-73); Platelet Count 154 K/mm3 (150-400); RDW Coefficient Variation 13.2 % (11.7-14.2); RDW Standard Deviation 45.1 fL (35.1-46.3); Red Blood Cell Count 4.62 M/mm3 (3.80-5.20); White Blood Cell Count 5.69 K/mm3 (4.00-11.30)
[2021-12-17 16:40] LABS: Alanine Aminotransfer (ALT/SGP 36 U/L (12-78); Albumin, Blood 3.8 g/dL (3.4-5.0); Albumin/Globulin Ratio 1.1 (0.8-1.8); Alk Phos 83 U/L (50-136); Anion Gap 5 mmol/L (6-16); Aspartate Aminotrans (AST/SGOT 35 U/L (12-37); Bilirubin, Total 0.6 mg/dL (0.1-1.0); Blood Urea Nitrogen 13 mg/dL (8-24); Bun/Creatinine Ratio 17.5 (12.0-20.0); CO2, Blood 28 mmol/L (21-32); Chloride, Blood 109 mmol/L (98-108); Creatinine, Blood 0.74 mg/dL (0.40-1.00); Globulin, Blood 3.5 g/dL (2.2-4.0); Glomerular Filtration Rate >60 (60-); Glucose, Blood 81 mg/dL (70-99); Potassium, Blood 3.6 mmol/L (3.5-5.5); Sodium, Blood 142 mmol/L (136-145); Total Protein, Blood 7.3 g/dL (6.4-8.2)
== END 2021-12-17 18:22 | disposition home or self-care (01) ==
LOC: ER 14:59
PROVIDERS: Physician Assistant
DX: R53.1 Weakness (principal); Z88.0 Allergy status to penicillin; Z88.2 Allergy status to sulfonamides; Z88.1 Allergy status to other antibiotic agents; Z88.8 Allergy status to other drugs, medicaments and biological substances; Z79.899 Other long term (current) drug therapy; I10 Essential (primary) hypertension; Z87.891 Personal history of nicotine dependence
CPT/HCPCS: 36415; 70450; 80053; 85025; 93005; 93010; 99285-25

== ENCOUNTER 2022-05-25 12:24 | Emergency (ER) | payer MEDICARE, OTHER ==
[~2022-05-25] VITALS: Ht 149.9 cm; Wt 66.7 kg
[2022-05-25] MEDS ORDERED: CYCL10 PO (15:40)
== END 2022-05-25 15:58 | disposition home or self-care (01) ==
LOC: ER 12:24
DX: S09.90XA Unspecified injury of head, initial encounter (principal); W18.30XA Fall on same level, unspecified, initial encounter; I10 Essential (primary) hypertension; Z88.0 Allergy status to penicillin; Z88.2 Allergy status to sulfonamides; Z88.1 Allergy status to other antibiotic agents; Z88.5 Allergy status to narcotic agent; Z79.899 Other long term (current) drug therapy
CPT/HCPCS: 70450; 72125; 72170; A9270

== ENCOUNTER 2022-06-15 07:14 | Day surgery (SDC) | payer MEDICARE, OTHER ==
[~2022-06-15] VITALS: Ht 149.9 cm; Wt 67.8 kg
[~2022-06-15 07:14] MED LIST changes: +CYCL10 PO
[2022-06-15] MEDS ORDERED: LOSA25 PO (07:36)
[2022-06-15] MEDS ORDERED: [UNRECOGNIZED DRUG - CODE] PO (07:37)
--- NOTE | 2022-06-15 07:57 | NUR ---
Ambulatory in Day Surgery History, Chart, Medications and Allergies reviewed before start of procedure. Pre-Op teaching done. Pt verbalizes understanding. Patient States Post-Procedure ride home has been arranged.
--- NOTE | 2022-06-15 09:20 | NUR ---
Patient States Post-Procedure ride home has been arranged. Discharge instructions reviewed with patient. Patient verbalizes understanding. Copy given to patient to take home. Discharged via wheelchair to private car for ride home.
--- NOTE | 2022-06-15 09:45 | NUR ---
06/15/22 0945 Greg Wang HISTORY, CHART, MEDICATIONS AND ALLERGIES REVIEWED BEFORE START OF PROCEDURE. PATIENT CONFIRMS NPO STATUS AND AGREES WITH SCHEDULED PROCEDURE. 3-LEAD EKG REVIEWED WITH PHYSICIAN PRIOR TO START OF PROCEDURE. MONITOR INTACT WITH CONTINUOUS PULSE OXIMETRY,CAPNOGRAPHY, 3-LEAD EKG, INTERMITTENT BP. SUPPLEMENTAL O2 TO BE TITRATED THROUGHOUT PROCEDURE TO MAINTAIN O2 SATURATION ABOVE 90%. PATIENT DETERMINED TO BE ASA APPROPRIATE FOR PROPOFOL SEDATION PRIOR TO START OF PROCEDURE BY DR. ARREGUIN.
== END 2022-06-15 09:25 | disposition home or self-care (01) ==
LOC: ORSCMMR 07:14 → ORD 08:30 → ORSCMMR 09:25
PROVIDERS: Internal Medicine Gastroenterology
PROC: 0D758ZZ Dilation of Esophagus, Via Natural or Artificial Opening Endoscopic (ICD-10-PCS; principal; 2022-06-15 08:30)
DX: K74.60 Unspecified cirrhosis of liver (principal); I85.10 Secondary esophageal varices without bleeding; K22.2 Esophageal obstruction; K44.9 Diaphragmatic hernia without obstruction or gangrene; R56.9 Unspecified convulsions; D73.2 Chronic congestive splenomegaly; D69.6 Thrombocytopenia, unspecified; Z86.19 Personal history of other infectious and parasitic diseases; Z86.718 Personal history of other venous thrombosis and embolism; I10 Essential (primary) hypertension; J45.909 Unspecified asthma, uncomplicated; Z86.73 Personal history of transient ischemic attack (TIA), and cerebral infarction without residual deficits; Z79.899 Other long term (current) drug therapy; Z79.82 Long term (current) use of aspirin; Z87.891 Personal history of nicotine dependence
CPT/HCPCS: C1726; J2704; J7120

== ENCOUNTER 2023-01-30 12:27 | Emergency (ER) | payer MEDICARE, OTHER ==
[~2023-01-30] VITALS: Ht 149.9 cm; Wt 67.1 kg
[~2023-01-30 12:27] MED LIST changes: +[UNRECOGNIZED DRUG - CODE] PO
[2023-01-30 13:14] LABS: BASOPHILS ABSOLUTE AUTO 0.04 K/mm3 (0.00-0.23); BASOPHILS PERCENT AUTO 1 % (0-2); EOSINOPHILS ABSOLUTE AUTO 0.09 K/mm3 (0.00-0.68); EOSINOPHILS PERCENT AUTO 2 % (0-6); Hematocrit 39.4 % (33.0-51.0); Hemoglobin 13.4 g/dL (11.5-16.0); IMMATURE GRAN PERCENT AUTO 0 % (0-1); LYMPHOCYTES ABSOLUTE AUTO 1.22 K/mm3 (0.84-5.20); LYMPHOCYTES PERCENT AUTO 29 % (21-46); MONOCYTES ABSOLUTE AUTO 0.35 K/mm3 (0.16-1.47); MONOCYTES PERCENT AUTO 8 % (4-13); Mean Corpuscular HGB 31.7 pg (26.0-34.0); Mean Corpuscular Volume 93 fL (80-100); Mean Platelet Volume 9.5 fL (9.1-12.4); NEUTROPHILS ABSOLUTE AUTO 2.55 K/mm3 (1.96-9.15); NEUTROPHILS PERCENT AUTO 60 % (41-73); Platelet Count 126 K/mm3 (150-400); RDW Standard Deviation 44.2 fL (35.1-46.3); Red Blood Cell Count 4.23 M/mm3 (3.80-5.20); White Blood Cell Count 4.25 K/mm3 (4.00-11.30)
[2023-01-30 13:35] LABS: Albumin, Blood 3.7 g/dL (3.4-5.0); Albumin/Globulin Ratio 1.2 (0.8-1.8); Bun/Creatinine Ratio 15.2 (12.0-20.0); Calcium, Blood 8.8 mg/dL (8.5-10.1); Creatinine, Blood 0.72 mg/dL (0.40-1.00); Globulin, Blood 3.1 g/dL (2.2-4.0); Potassium, Blood 3.8 mmol/L (3.5-5.5); Total Protein, Blood 6.8 g/dL (6.4-8.2)
[2023-01-30] MEDS ORDERED: NYSTRIT TOP (13:45)
[2023-01-30] MEDS ORDERED: MAGNESIUM OXID500 MG PO (13:46)
[2023-01-30] MEDS ORDERED: FOSAMAX70 MG PO (13:47)
[2023-01-30] MEDS ORDERED: VITAMIN D32000 UNI1 PO (13:47)
[2023-01-30] MEDS ORDERED: CALCIUM 500 MG1 EAC2 PO (13:47)
[2023-01-30 13:52] LABS: Source, Urine Clean Catch
[2023-01-30 13:55] LABS: Appearance, Urine Clear (Clear); Blood, Urine Neg (Neg); Color, Urine Yellow (P-Yellow); Glucose Qualitative, Urine Neg (Neg); Ketones, Urine Neg (Neg); Leukocyte Esterase, Urine Neg (Neg); Nitrite, Urine Neg (Neg); Protein, Urine Neg (Neg); Specific Gravity, Urine 1.005 (1.003-1.022); Urobilinogen, Urine NORM (Normal)
[2023-01-30 14:02] LABS: Bilirubin, Urine 1+ (Neg)
[2023-01-30] MEDS ORDERED: Pepcid20 MG PO (15:10)
[2023-02-01] MEDS ORDERED: PROBIOTIC1 EA13 PO (19:55)
== END 2023-01-30 15:45 | disposition home or self-care (01) ==
LOC: ER 12:27
PROVIDERS: Emergency Medicine
DX: R10.10 Upper abdominal pain, unspecified (principal); I10 Essential (primary) hypertension; Z79.899 Other long term (current) drug therapy; Z88.0 Allergy status to penicillin; Z88.2 Allergy status to sulfonamides; Z88.1 Allergy status to other antibiotic agents; Z88.8 Allergy status to other drugs, medicaments and biological substances
CPT/HCPCS: 36415; 80053; 81003; 83690; 84484; 85025; 93005; 93010; 96374; 96375; 99284-25; A9270; C9113; J2405

== ENCOUNTER 2023-03-24 22:15 | Emergency (ER) | payer MEDICARE ==
[~2023-03-24] VITALS: Ht 157.5 cm; Wt 66.7 kg
[~2023-03-24 22:15] MED LIST changes: +CALCIUM 500 MG1 EAC2 PO; +FOSAMAX70 MG PO; +MAGNESIUM OXID500 MG PO; +NYSTRIT TOP; +PROBIOTIC1 EA13 PO; +Pepcid20 MG PO; +VITAMIN D32000 UNI1 PO
[2023-03-25 00:16] LABS: BASOPHILS ABSOLUTE AUTO 0.05 K/mm3 (0.00-0.23); BASOPHILS PERCENT AUTO 1 % (0-2); EOSINOPHILS ABSOLUTE AUTO 0.12 K/mm3 (0.00-0.68); EOSINOPHILS PERCENT AUTO 2 % (0-6); Hematocrit 40.8 % (33.0-51.0); Hemoglobin 14.2 g/dL (11.5-16.0); IMMATURE GRAN PERCENT AUTO 0 % (0-1); LYMPHOCYTES ABSOLUTE AUTO 1.57 K/mm3 (0.84-5.20); LYMPHOCYTES PERCENT AUTO 26 % (21-46); MONOCYTES ABSOLUTE AUTO 0.48 K/mm3 (0.16-1.47); MONOCYTES PERCENT AUTO 8 % (4-13); Mean Corpuscular HGB Conc 34.8 g/dL (31.5-36.5); Mean Corpuscular Volume 92 fL (80-100); Mean Platelet Volume 9.9 fL (9.1-12.4); NEUTROPHILS ABSOLUTE AUTO 3.82 K/mm3 (1.96-9.15); NEUTROPHILS PERCENT AUTO 63 % (41-73); Platelet Count 127 K/mm3 (150-400); RDW Coefficient Variation 12.4 % (11.7-14.2); RDW Standard Deviation 41.8 fL (35.1-46.3); Red Blood Cell Count 4.44 M/mm3 (3.80-5.20); White Blood Cell Count 6.04 K/mm3 (4.00-11.30)
[2023-03-25 00:39] LABS: Albumin, Blood 3.5 g/dL (3.4-5.0); Albumin/Globulin Ratio 1.1 (0.8-1.8); Bun/Creatinine Ratio 17.9 (12.0-20.0); Calcium, Blood 9.2 mg/dL (8.5-10.1); Creatinine, Blood 0.78 mg/dL (0.40-1.00); Globulin, Blood 3.1 g/dL (2.2-4.0); Potassium, Blood 3.7 mmol/L (3.5-5.5); Total Protein, Blood 6.6 g/dL (6.4-8.2)
[2023-03-25 00:44] LABS: International Normalized Ratio 1.09; Prothrombin Time Results 11.4 Sec (9.7-11.5)
[2023-03-25] MEDS ORDERED: ONDA4ODT SL (00:58)
[2023-03-25 01:21] VITALS: BP 156/68
== END 2023-03-25 01:22 | disposition home or self-care (01) ==
LOC: ER 22:15
PROVIDERS: Emergency Medicine
DX: R19.7 Diarrhea, unspecified (principal); R11.0 Nausea; R10.13 Epigastric pain; I10 Essential (primary) hypertension; B18.2 Chronic viral hepatitis C; Z88.0 Allergy status to penicillin; Z88.2 Allergy status to sulfonamides; Z88.1 Allergy status to other antibiotic agents; Z88.4 Allergy status to anesthetic agent; Z79.899 Other long term (current) drug therapy
CPT/HCPCS: 74018; 80053; 83690; 85025; 85610; 96374; 99284-25; A9270; J2405; J7030

== ENCOUNTER 2023-04-01 11:55 | Emergency (ER) | payer MEDICARE ==
[~2023-04-01] VITALS: Ht 149.9 cm; Wt 65.8 kg
[~2023-04-01 11:55] MED LIST changes: +ONDA4ODT SL
[2023-04-01 13:02] LABS: BASOPHILS ABSOLUTE AUTO 0.05 K/mm3 (0.00-0.23); BASOPHILS PERCENT AUTO 1 % (0-2); EOSINOPHILS ABSOLUTE AUTO 0.11 K/mm3 (0.00-0.68); EOSINOPHILS PERCENT AUTO 2 % (0-6); Hematocrit 44.2 % (33.0-51.0); Hemoglobin 15.1 g/dL (11.5-16.0); IMMATURE GRAN ABSOLUTE AUTO 0.01 K/mm3 (0.00-0.10); IMMATURE GRAN PERCENT AUTO 0 % (0-1); LYMPHOCYTES ABSOLUTE AUTO 1.49 K/mm3 (0.84-5.20); LYMPHOCYTES PERCENT AUTO 22 % (21-46); MONOCYTES ABSOLUTE AUTO 0.59 K/mm3 (0.16-1.47); MONOCYTES PERCENT AUTO 9 % (4-13); Mean Corpuscular HGB 31.9 pg (26.0-34.0); Mean Corpuscular HGB Conc 34.2 g/dL (31.5-36.5); Mean Corpuscular Volume 93 fL (80-100); NEUTROPHILS PERCENT AUTO 67 % (41-73); Platelet Count 149 K/mm3 (150-400); RDW Coefficient Variation 12.3 % (11.7-14.2); RDW Standard Deviation 42.5 fL (35.1-46.3); Red Blood Cell Count 4.73 M/mm3 (3.80-5.20); White Blood Cell Count 6.75 K/mm3 (4.00-11.30)
[2023-04-01 13:27] LABS: Albumin, Blood 3.9 g/dL (3.4-5.0); Albumin/Globulin Ratio 1.2 (0.8-1.8); Bilirubin, Total 1.1 mg/dL (0.1-1.0); Bun/Creatinine Ratio 13.4 (12.0-20.0); Calcium, Blood 9.6 mg/dL (8.5-10.1); Creatinine, Blood 0.82 mg/dL (0.40-1.00); Globulin, Blood 3.3 g/dL (2.2-4.0); Potassium, Blood 4.1 mmol/L (3.5-5.5); Total Protein, Blood 7.2 g/dL (6.4-8.2)
[2023-04-01 13:45] VITALS: BP 172/79
== END 2023-04-01 14:16 | disposition home or self-care (01) ==
LOC: ER 11:55
PROVIDERS: Physician Assistant
DX: G40.909 Epilepsy, unspecified, not intractable, without status epilepticus (principal); I10 Essential (primary) hypertension; B19.20 Unspecified viral hepatitis C without hepatic coma; F17.200 Nicotine dependence, unspecified, uncomplicated; Z88.0 Allergy status to penicillin; Z88.2 Allergy status to sulfonamides; Z88.1 Allergy status to other antibiotic agents; Z88.4 Allergy status to anesthetic agent; W19.XXXA Unspecified fall, initial encounter
CPT/HCPCS: 70450; 80053; 85025; 99284-25

== ENCOUNTER 2023-04-16 20:42 | Emergency (ER) | payer OTHER, MEDICARE ==
[~2023-04-16] VITALS: Ht 149.9 cm; Wt 66.7 kg
[2023-04-16] MEDS ORDERED: LACOSAMIDE100 M1 PO (21:58)
[2023-04-16 21:59] VITALS: BP 156/80
== END 2023-04-17 00:11 | disposition home or self-care (01) ==
LOC: ER 20:42
DX: S09.90XA Unspecified injury of head, initial encounter (principal); R07.81 Pleurodynia; W01.10XA Fall on same level from slipping, tripping and stumbling with subsequent striking against unspecified object, initial encounter; Z88.0 Allergy status to penicillin; Z88.2 Allergy status to sulfonamides; Z88.8 Allergy status to other drugs, medicaments and biological substances; Z88.1 Allergy status to other antibiotic agents; Z79.899 Other long term (current) drug therapy; I10 Essential (primary) hypertension; G40.909 Epilepsy, unspecified, not intractable, without status epilepticus; Z87.891 Personal history of nicotine dependence
CPT/HCPCS: 70450; 71101; 96372; 99284-25; A9270; J1885

== ENCOUNTER 2023-06-27 22:41 | Observation (INO) | payer MEDICARE ==
[~2023-06-27] VITALS: Ht 149.9 cm; Wt 66.0 kg
[~2023-06-27 22:41] MED LIST changes: +ACET500 PO; +IBUP400 PO; +LACOSAMIDE100 M1 PO; +LIDO700A20 TOP
[2023-06-27 23:10] LABS: BASOPHILS ABSOLUTE AUTO 0.06 K/mm3 (0.00-0.23); BASOPHILS PERCENT AUTO 1 % (0-2); EOSINOPHILS ABSOLUTE AUTO 0.09 K/mm3 (0.00-0.68); EOSINOPHILS PERCENT AUTO 1 % (0-6); Hematocrit 42.1 % (33.0-51.0); Hemoglobin 14.9 g/dL (11.5-16.0); IMMATURE GRAN ABSOLUTE AUTO 0.03 K/mm3 (0.00-0.10); IMMATURE GRAN PERCENT AUTO 0 % (0-1); LYMPHOCYTES PERCENT AUTO 22 % (21-46); MONOCYTES ABSOLUTE AUTO 0.61 K/mm3 (0.16-1.47); MONOCYTES PERCENT AUTO 8 % (4-13); Mean Corpuscular HGB 32.4 pg (26.0-34.0); Mean Corpuscular HGB Conc 35.4 g/dL (31.5-36.5); Mean Corpuscular Volume 92 fL (80-100); Mean Platelet Volume 10.3 fL (9.1-12.4); NEUTROPHILS ABSOLUTE AUTO 5.47 K/mm3 (1.96-9.15); NEUTROPHILS PERCENT AUTO 68 % (41-73); Platelet Count 153 K/mm3 (150-400); RDW Coefficient Variation 12.5 % (11.7-14.2); RDW Standard Deviation 41.8 fL (35.1-46.3); White Blood Cell Count 8.06 K/mm3 (4.00-11.30)
[2023-06-28 00:25] LABS: Source, Urine Clean Catch
[2023-06-28 00:27] LABS: Bilirubin, Urine Neg (Neg); Blood, Urine 2+ (Neg); Glucose Qualitative, Urine Neg (Neg); Ketones, Urine 1+ (Neg); Leukocyte Esterase, Urine 1+ (Neg); Nitrite, Urine Neg (Neg); Protein, Urine 1+ (Neg); Urobilinogen, Urine NORM (Normal)
[2023-06-28 00:36] LABS: Appearance, Urine Clear (Clear); Color, Urine Yellow (P-Yellow)
[2023-06-28 00:37] LABS: Bacteria Few /hpf; Red Blood Cells, Urine 0-2 /hpf (0-2); Squamous Epithelial Cells Few /hpf (Few); White Blood Cells, Urine 0-2 /hpf (0-5)
[2023-06-28 00:42] LABS: U Amphetamine Screen Not Detected; U Barbituate Screen Not Detected; U Benzodiazapine Screen Not Detected; U Buprenorphine Screen Not Detected; U Cannabinoids Screen Not Detected; U Cocaine Screen Not Detected; U Methadone Screen Not Detected; U Methamphetamine Screen Not Detected; U Opiates Screen Not Detected; U Oxycodone Screen Not Detected; U Phencyclidine Screen Not Detected; U Propoxyphene Screen Not Detected
[2023-06-28 01:23] LABS: Albumin, Blood 3.7 g/dL (3.4-5.0); Albumin/Globulin Ratio 1.2 (0.8-1.8); Bilirubin, Total 1.4 mg/dL (0.1-1.0); Bun/Creatinine Ratio 21.6 (12.0-20.0); Calcium, Blood 8.7 mg/dL (8.5-10.1); Creatinine, Blood 0.83 mg/dL (0.40-1.00); Globulin, Blood 3.1 g/dL (2.2-4.0); Potassium, Blood 3.5 mmol/L (3.5-5.5); Thyroid Stimulating Hormone 2.4 uIU/mL (0.360-4.800); Total Protein, Blood 6.8 g/dL (6.4-8.2)
[2023-06-28 03:26] VITALS: BP 145/80
[2023-06-28 04:09] LABS: CHOL/HDL RATIO 3.2; Cholesterol 161 mg/dL (50-200); HDL Cholesterol 51 mg/dL (>39); LDL/HDL RATIO 1.8; Low Density Lipoprotein Chol 93 mg/dL (0-110); Triglycerides 87 mg/dL (30-160); Very Low Density Lipoprot Chol 17 mg/dL (6-32)
[2023-06-28 07:36] VITALS: BP 148/65
[2023-06-28] MEDS ORDERED: LOSA25 PO (11:06)
--- NOTE | 2023-06-28 13:03 | NUR ---
NOTE: SPOKE WITH PROVIDER ABOUT POTENTIAL INTERACTION BETWEEN PRILOSEC AND PLAVIX, SHE SAID IT WAS OKAY TO GIVE.
[2023-06-28] MEDS ORDERED: Aspir 8181 MG PO (14:46)
[2023-06-28] MEDS ORDERED: ATOR40TA PO (14:46)
--- NOTE | 2023-06-28 15:17 | NUR ---
DISCHARGE NOTE PT DISCHARGED TO HOME, PICKED UP BY HER BROTHER. DISCHARGE INFORMATION AND EDUCATION PROVIDED. MEDICATIONS FAXED TO THE PHARMACY OF HER CHOICE. IV REMOVED SUCCESSFULLY BY THE MANAGER ZONE. PERSONAL BELONGINGS RETURNED TO THE PT.
== END 2023-06-28 15:16 | disposition home or self-care (01) ==
LOC: ER 22:41 → MEDS 22:42
PROVIDERS: Student in an Organized Health Care Education/Training Program; ADMIT Student in an Organized Health Care Education/Training Program
DX: R47.01 Aphasia (principal); I10 Essential (primary) hypertension; G40.909 Epilepsy, unspecified, not intractable, without status epilepticus; K74.60 Unspecified cirrhosis of liver; Z72.0 Tobacco use; Z88.0 Allergy status to penicillin; Z88.2 Allergy status to sulfonamides; Z88.8 Allergy status to other drugs, medicaments and biological substances; Z86.16 Personal history of COVID-19
CPT/HCPCS: 36415; 70450; 70551; 80053; 80061; 81001; 83735; 84443; 85025; 87086; 92523; 93005; 93010; 93306; 93880; 96365; 96372; 97162; 97165; 97530; 99285-25; A9270; G0378; J0696; J1650

== ENCOUNTER 2023-09-06 12:17 | Emergency (ER) | payer MEDICARE ==
[~2023-09-06] VITALS: Ht 149.9 cm; Wt 66.7 kg
[~2023-09-06 12:17] MED LIST changes: +ATOR40TA PO; +Aspir 8181 MG PO
[2023-09-06 13:07] LABS: BASOPHILS ABSOLUTE AUTO 0.04 K/mm3 (0.00-0.23); BASOPHILS PERCENT AUTO 1 % (0-2); EOSINOPHILS ABSOLUTE AUTO 0.06 K/mm3 (0.00-0.68); EOSINOPHILS PERCENT AUTO 1 % (0-6); Hematocrit 43.1 % (33.0-51.0); Hemoglobin 14.6 g/dL (11.5-16.0); IMMATURE GRAN ABSOLUTE AUTO 0.01 K/mm3 (0.00-0.10); IMMATURE GRAN PERCENT AUTO 0 % (0-1); LYMPHOCYTES ABSOLUTE AUTO 0.96 K/mm3 (0.84-5.20); LYMPHOCYTES PERCENT AUTO 22 % (21-46); MONOCYTES PERCENT AUTO 9 % (4-13); Mean Corpuscular HGB 31.9 pg (26.0-34.0); Mean Corpuscular HGB Conc 33.9 g/dL (31.5-36.5); Mean Corpuscular Volume 94 fL (80-100); Mean Platelet Volume 9.3 fL (9.1-12.4); NEUTROPHILS ABSOLUTE AUTO 2.95 K/mm3 (1.96-9.15); NEUTROPHILS PERCENT AUTO 67 % (41-73); Platelet Count 126 K/mm3 (150-400); RDW Coefficient Variation 12.8 % (11.7-14.2); RDW Standard Deviation 44.1 fL (35.1-46.3); Red Blood Cell Count 4.57 M/mm3 (3.80-5.20); White Blood Cell Count 4.42 K/mm3 (4.00-11.30)
[2023-09-06 13:38] LABS: Albumin, Blood 3.9 g/dL (3.4-5.0); Bilirubin, Total 1.5 mg/dL (0.1-1.0); Bun/Creatinine Ratio 17.2 (12.0-20.0); Calcium, Blood 9.3 mg/dL (8.5-10.1); Creatinine, Blood 0.76 mg/dL (0.40-1.00); Globulin, Blood 4.1 g/dL (2.2-4.0); Magnesium, Blood 2.1 mg/dL (1.6-2.4); Potassium, Blood 3.9 mmol/L (3.5-5.5)
[2023-09-06 17:45] VITALS: BP 163/76
== END 2023-09-06 18:34 | disposition home or self-care (01) ==
LOC: ER 12:17
PROVIDERS: Physician Assistant
DX: R25.1 Tremor, unspecified (principal); Z63.8 Other specified problems related to primary support group; I10 Essential (primary) hypertension; G40.909 Epilepsy, unspecified, not intractable, without status epilepticus; Z88.8 Allergy status to other drugs, medicaments and biological substances; Z88.0 Allergy status to penicillin; Z88.2 Allergy status to sulfonamides; Z88.1 Allergy status to other antibiotic agents; Z88.5 Allergy status to narcotic agent; Z87.891 Personal history of nicotine dependence; Z79.82 Long term (current) use of aspirin; Z79.899 Other long term (current) drug therapy
CPT/HCPCS: 80053; 83735; 84484; 85025; 99283

== ENCOUNTER 2023-10-29 17:36 | Emergency (ER) | payer MEDICARE ==
[~2023-10-29] VITALS: Ht 149.9 cm; Wt 66.7 kg
[2023-10-29 19:18] VITALS: BP 150/72
== END 2023-10-29 19:20 | disposition home or self-care (01) ==
LOC: ER 17:36
DX: S83.92XA Sprain of unspecified site of left knee, initial encounter (principal); W19.XXXA Unspecified fall, initial encounter; Z88.8 Allergy status to other drugs, medicaments and biological substances; Z88.0 Allergy status to penicillin; Z88.2 Allergy status to sulfonamides; Z88.1 Allergy status to other antibiotic agents; Z79.899 Other long term (current) drug therapy; Z79.82 Long term (current) use of aspirin; G40.909 Epilepsy, unspecified, not intractable, without status epilepticus; I10 Essential (primary) hypertension
CPT/HCPCS: 93971; 99283-25

== ENCOUNTER 2023-12-03 12:22 | Emergency (ER) | payer OTHER, MEDICARE ==
[~2023-12-03] VITALS: Ht 157.5 cm; Wt 70.3 kg
[2023-12-03] MEDS ORDERED: ESCI10 PO (12:39)
[2023-12-03] MEDS ORDERED: LASIX20 M2 PO (12:39)
[2023-12-03] MEDS ORDERED: OxyCODONE 7.5 mg/Acetam 325 mg TABLET PO ONE (12:40)
[2023-12-03] MEDS ORDERED: OXAYDO5 M1 PO (14:46)
[2023-12-03 15:46] VITALS: BP 137/91
== END 2023-12-03 15:45 | disposition home or self-care (01) ==
LOC: ER 12:22
DX: S02.2XXA Fracture of nasal bones, initial encounter for closed fracture (principal); S80.02XA Contusion of left knee, initial encounter; W01.10XA Fall on same level from slipping, tripping and stumbling with subsequent striking against unspecified object, initial encounter; Z88.8 Allergy status to other drugs, medicaments and biological substances; Z88.0 Allergy status to penicillin; Z88.2 Allergy status to sulfonamides; Z88.1 Allergy status to other antibiotic agents; Z79.899 Other long term (current) drug therapy; Z79.82 Long term (current) use of aspirin; I10 Essential (primary) hypertension; G40.909 Epilepsy, unspecified, not intractable, without status epilepticus
CPT/HCPCS: 70450; 70486; 72125; 73562-LT; 99284-25; A9270

== ENCOUNTER 2023-12-07 20:56 | Emergency (ER) | payer MEDICARE ==
[~2023-12-07] VITALS: Ht 149.9 cm; Wt 66.7 kg
[~2023-12-07 20:56] MED LIST changes: +ESCI10 PO; +LASIX20 M2 PO; +OXAYDO5 M1 PO
[2023-12-07 21:26] VITALS: BP 169/85
== END 2023-12-07 23:20 | disposition home or self-care (01) ==
LOC: ER 20:56
DX: R60.0 Localized edema (principal); G40.909 Epilepsy, unspecified, not intractable, without status epilepticus; I10 Essential (primary) hypertension; Z88.8 Allergy status to other drugs, medicaments and biological substances; Z88.0 Allergy status to penicillin; Z88.2 Allergy status to sulfonamides; Z88.1 Allergy status to other antibiotic agents; Z88.4 Allergy status to anesthetic agent; Z79.899 Other long term (current) drug therapy; Z79.82 Long term (current) use of aspirin
CPT/HCPCS: 73000; 99283-25

== ENCOUNTER 2023-12-16 09:54 | Day surgery (SDC) | payer MEDICARE ==
[~2023-12-16] VITALS: Ht 149.9 cm; Wt 67.9 kg
[~2023-12-16 09:54] MED LIST changes: +DEXTROMETHORPHAN; +ERGO400; +LORA2; +Lactated Ringer's 1,000 ML IV ONE; +Lidocaine HCl/Pf 1% 5 ML VIAL ONE; +Vitamin B Comple1 EA; +Zinc 15 MG Loze15 MG; +propofoL 50 ML IV ONE
[2023-12-16] MEDS ORDERED: C COMPLEX1000 M1 (10:36)
[2023-12-16] MEDS ORDERED: CALCIUM 500 MG1 EAC2 (10:37)
[2023-12-16] MEDS ORDERED: FURO20 (10:37)
[2023-12-16] MEDS ORDERED: LOSA50 (10:38)
[2023-12-16] MEDS ORDERED: OMEP20ER (10:38)
[2023-12-16] MEDS ORDERED: LACOSAMIDE100 M1 (10:38)
[2023-12-16] MEDS ORDERED: IBUP200 (10:41)
[2023-12-16] MEDS ORDERED: ESCI20 (10:41)
[2023-12-16] MEDS ORDERED: ASPI81CH (10:41)
[2023-12-16] MEDS ORDERED: ATOR20 (10:41)
[2023-12-16] MEDS ORDERED: Lactated Ringer's 1,000 ML IV ONE (11:46)
[2023-12-16] MEDS ORDERED: Lidocaine 2% 5 ML SDV ONE (12:27)
[2023-12-16] MEDS ORDERED: Ipratropium/Albuterol SulF 2.5-0.5MG/3 ML Amp ONE (12:37)
[2023-12-16 12:50] VITALS: BP 164/77
--- NOTE | 2023-12-16 12:55 | NUR ---
12/16/23 1255 DAT IZAGUIRRE PT TO STEP DOWN, NEIGHBOR, DIANA RIDE HOME BROUGHT TO STEP DOWN. PT ON ROOM AIR, NO O2 NEEDED. NO PAIN, NO NAUSEA, DUONEB COMPLETED AND LUNGS CTA. PT TOLERATED PO INTAKE. VSS, PT HYPERTENSIVE, BUT CONSISTENT WITH BASELINE.
== END 2023-12-16 13:17 | disposition home or self-care (01) ==
LOC: ORSCSDS 09:54
PROVIDERS: Internal Medicine Gastroenterology
PROC: 0DJ08ZZ Inspection of Upper Intestinal Tract, Via Natural or Artificial Opening Endoscopic (ICD-10-PCS; principal; 2023-12-16 11:15)
DX: K74.60 Unspecified cirrhosis of liver (principal); R19.4 Change in bowel habit; R11.0 Nausea; K22.2 Esophageal obstruction; R56.9 Unspecified convulsions; Z87.898 Personal history of other specified conditions; Z86.19 Personal history of other infectious and parasitic diseases; Z86.16 Personal history of COVID-19; Z87.19 Personal history of other diseases of the digestive system; Z80.0 Family history of malignant neoplasm of digestive organs; I10 Essential (primary) hypertension; Z79.899 Other long term (current) drug therapy
CPT/HCPCS: C1726; J2001; J2704; J7120

== ENCOUNTER 2024-05-11 22:29 | Inpatient (IN) | payer MEDICARE ==
[~2024-05-11] VITALS: Ht 149.9 cm; Wt 77.1 kg
[~2024-05-11 22:29] MED LIST changes: +ATOR20; +C COMPLEX1000 M1; +C COMPLEX1000 M1 PO; +CALCIUM 500 MG1 EAC2; +CALCIUM 600 +1 EA11 PO; +CIPR500 PO; +ESCI20; +FURO20; +IBUP200; +LACO50TA2; +LACOSAMIDE100 M1; +LOSA50; -Lactated Ringer's 1,000 ML IV ONE; -Lidocaine HCl/Pf 1% 5 ML VIAL ONE; -propofoL 50 ML IV ONE
[2024-05-11 23:01] LABS: BASOPHILS ABSOLUTE AUTO 0.05 K/mm3 (0.00-0.23); BASOPHILS PERCENT AUTO 1 % (0-2); EOSINOPHILS ABSOLUTE AUTO 0.06 K/mm3 (0.00-0.68); EOSINOPHILS PERCENT AUTO 1 % (0-6); Hematocrit 40.5 % (33.0-51.0); Hemoglobin 13.7 g/dL (11.5-16.0); IMMATURE GRAN ABSOLUTE AUTO 0.02 K/mm3 (0.00-0.10); IMMATURE GRAN PERCENT AUTO 0 % (0-1); LYMPHOCYTES PERCENT AUTO 20 % (21-46); MONOCYTES ABSOLUTE AUTO 0.52 K/mm3 (0.16-1.47); MONOCYTES PERCENT AUTO 10 % (4-13); Mean Corpuscular HGB 31.4 pg (26.0-34.0); Mean Corpuscular HGB Conc 33.8 g/dL (31.5-36.5); Mean Corpuscular Volume 93 fL (80-100); Mean Platelet Volume 9.8 fL (9.1-12.4); NEUTROPHILS ABSOLUTE AUTO 3.42 K/mm3 (1.96-9.15); NEUTROPHILS PERCENT AUTO 67 % (41-73); Platelet Count 145 K/mm3 (150-400); RDW Coefficient Variation 12.8 % (11.7-14.2); RDW Standard Deviation 43.7 fL (35.1-46.3); Red Blood Cell Count 4.37 M/mm3 (3.80-5.20); White Blood Cell Count 5.07 K/mm3 (4.00-11.30)
[2024-05-11 23:08] LABS: Source, Urine Clean Catch
[2024-05-11 23:11] LABS: Bilirubin, Urine Neg (Neg); Blood, Urine 2+ (Neg); Glucose Qualitative, Urine Neg (Neg); Ketones, Urine Neg (Neg); Leukocyte Esterase, Urine 1+ (Neg); Nitrite, Urine Neg (Neg); Protein, Urine Neg (Neg); Urobilinogen, Urine NORM (Normal); pH, Urine 6.5 (5.0-8.0)
[2024-05-11 23:19] LABS: Appearance, Urine Clear (Clear); Color, Urine Pale Yellow (P-Yellow)
[2024-05-11 23:22] LABS: Bacteria Mod /hpf; Red Blood Cells, Urine 0-2 /hpf (0-2); Squamous Epithelial Cells Mod /hpf (Few); White Blood Cells, Urine 0-2 /hpf (0-5)
[2024-05-11 23:22] LABS: Alanine Aminotransfer (ALT/SGP 68 U/L (12-78); Albumin, Blood 3.6 g/dL (3.4-5.0); Albumin/Globulin Ratio 0.9 (0.8-1.8); Alk Phos 108 U/L (50-136); Anion Gap 8 mmol/L (3-11); Aspartate Aminotrans (AST/SGOT 67 U/L (12-37); Bilirubin, Total 0.9 mg/dL (0.1-1.0); Blood Urea Nitrogen 19 mg/dL (8-24); Bun/Creatinine Ratio 23.3 (12.0-20.0); CO2, Blood 25 mmol/L (21-32); Calcium, Blood 8.8 mg/dL (8.5-10.1); Chloride, Blood 108 mmol/L (98-108); Creatinine, Blood 0.82 mg/dL (0.40-1.00); Globulin, Blood 3.8 g/dL (2.2-4.0); Glomerular Filtration Rate 75 (60-); Glucose, Blood 66 mg/dL (70-99); Potassium, Blood 4.2 mmol/L (3.5-5.5); Sodium, Blood 137 mmol/L (136-145); Total Protein, Blood 7.4 g/dL (6.4-8.2)
[2024-05-12] VITALS (10 sets, daily range): BP systolic 108–145; BP diastolic 56–80
[2024-05-12] MEDS ORDERED: Ketorolac Tromethamine 30mg Vial IV ONE (01:30)
[2024-05-12] MEDS ORDERED: Metoclopramide HCl 5MG / ML 2ML Vial IV ONE (01:30)
[2024-05-12 02:44] LABS: Ethanol (Alcohol), Blood, Med <3 mg/dL
[2024-05-12 02:54] LABS: Influenza A, PCR NEGATIVE (NEGATIVE); Influenza B, PCR NEGATIVE (NEGATIVE); Resp Syncytial Virus, PCR NEGATIVE (NEGATIVE); SARS-Cov-2 (COVID-19) PCR, MMC NEGATIVE (NEGATIVE)
[2024-05-12 03:49] LABS: Source, Urine Straight Cath
[2024-05-12 03:52] LABS: Bilirubin, Urine Neg (Neg); Blood, Urine 1+ (Neg); Glucose Qualitative, Urine Neg (Neg); Ketones, Urine Neg (Neg); Leukocyte Esterase, Urine Neg (Neg); Nitrite, Urine Neg (Neg); Protein, Urine 2+ (Neg); Urobilinogen, Urine NORM (Normal)
[2024-05-12 04:09] LABS: Appearance, Urine Clear (Clear); Color, Urine Yellow (P-Yellow)
[2024-05-12 04:10] LABS: Red Blood Cells, Urine 0-2 /hpf (0-2); White Blood Cells, Urine 0-2 /hpf (0-5)
[2024-05-12 04:11] LABS: Amorphous Light (0-Heavy); Bacteria Few /hpf; Squamous Epithelial Cells Few /hpf (Few)
[2024-05-12 04:14] LABS: U Amphetamine Screen Not Detected; U Barbituate Screen Not Detected; U Benzodiazapine Screen Not Detected; U Buprenorphine Screen Not Detected; U Cannabinoids Screen Not Detected; U Cocaine Screen Not Detected; U Methadone Screen Not Detected; U Methamphetamine Screen Not Detected; U Opiates Screen Not Detected; U Oxycodone Screen Not Detected; U Phencyclidine Screen Not Detected
[2024-05-12] MEDS ORDERED: LORazepam 2 MG/ML 1ML Injection ONE ×3 (05:46→06:25)
[2024-05-12] MEDS ORDERED: NS 1,000 ML IV ONE (05:51)
[2024-05-12] MEDS ORDERED: levETIRAcetam 2,000 MG in NS 100 ML IV ONE (05:55)
[2024-05-12] MEDS ORDERED: levETIRAcetam 1,000 MG in NS 100 ML IV ONE (06:20)
[2024-05-12 06:29] LABS: BASOPHILS ABSOLUTE AUTO 0.05 K/mm3 (0.00-0.23); BASOPHILS PERCENT AUTO 1 % (0-2); EOSINOPHILS ABSOLUTE AUTO 0.04 K/mm3 (0.00-0.68); EOSINOPHILS PERCENT AUTO 1 % (0-6); Hematocrit 38.7 % (33.0-51.0); Hemoglobin 13.1 g/dL (11.5-16.0); IMMATURE GRAN ABSOLUTE AUTO 0.03 K/mm3 (0.00-0.10); IMMATURE GRAN PERCENT AUTO 0 % (0-1); LYMPHOCYTES ABSOLUTE AUTO 0.93 K/mm3 (0.84-5.20); LYMPHOCYTES PERCENT AUTO 12 % (21-46); MONOCYTES ABSOLUTE AUTO 0.45 K/mm3 (0.16-1.47); MONOCYTES PERCENT AUTO 6 % (4-13); Mean Corpuscular HGB 31.9 pg (26.0-34.0); Mean Corpuscular HGB Conc 33.9 g/dL (31.5-36.5); Mean Corpuscular Volume 94 fL (80-100); NEUTROPHILS ABSOLUTE AUTO 6.45 K/mm3 (1.96-9.15); NEUTROPHILS PERCENT AUTO 81 % (41-73); Platelet Count 117 K/mm3 (150-400); RDW Standard Deviation 45.1 fL (35.1-46.3); Red Blood Cell Count 4.11 M/mm3 (3.80-5.20); White Blood Cell Count 7.95 K/mm3 (4.00-11.30)
[2024-05-12 06:32] LABS: Base Excess Venous -10.5 mmol/L; Bicarbonate Venous 16.9 mmol/L (24.0-30.0); PCO2 Venous 34.3 mmHg (38-42); pH Blood Venous 7.28 (7.34-7.37)
[2024-05-12 06:50] LABS: Albumin, Blood 3.4 g/dL (3.4-5.0); Albumin/Globulin Ratio 0.9 (0.8-1.8); Bilirubin, Total 0.8 mg/dL (0.1-1.0); Bun/Creatinine Ratio 20.3 (12.0-20.0); Calcium, Blood 8.6 mg/dL (8.5-10.1); Creatinine, Blood 0.79 mg/dL (0.40-1.00); Globulin, Blood 3.7 g/dL (2.2-4.0); Potassium, Blood 4.2 mmol/L (3.5-5.5); Total Protein, Blood 7.1 g/dL (6.4-8.2)
[2024-05-12] MEDS ORDERED: Ondansetron HCl 2 MG / ML 2ML Vial IV PRN (08:05)
[2024-05-12] MEDS ORDERED: LORazepam 2 MG/ML 1ML Injection IV PRN ×2 (08:05→14:05)
[2024-05-12] MEDS ORDERED: Lactated Ringer's 1,000 ML IV SCH ×2 (08:05→08:10)
[2024-05-12] MEDS ORDERED: Acetaminophen 325 MG TABLET PO PRN (08:05)
[2024-05-12] MEDS ORDERED: Acetaminophen 650 MG Supp PR PRN (08:05)
--- NOTE | 2024-05-12 09:29 | NUR ---
ADMISSION: Pt admitted to PCU 9 from ER. She responds to noxious stimuli and attempts to reposition herself.
--- NOTE | 2024-05-12 10:30 | NUR ---
FAMILY UPDATE: Pt's daughter, Kimberly, provided update via telephone. Questions answered.
[2024-05-12] MEDS ORDERED: LOSA25 PO (11:37)
[2024-05-12] MEDS ORDERED: LACO50TA2 PO (11:41)
[2024-05-12] MEDS ORDERED: VITAMIN D32000 UNI1 PO (11:43)
[2024-05-12 11:52] LABS: pH Blood Venous 7.42 (7.34-7.37)
[2024-05-12 11:53] LABS: Base Excess Venous -1.5 mmol/L; Bicarbonate Venous 23.3 mmol/L (24.0-30.0); PCO2 Venous 35.5 mmHg (38-42)
[2024-05-12] MEDS ORDERED: Lactulose 200 GM/300 ML Enema 300ML BTL PR SCH (12:00)
--- NOTE | 2024-05-12 16:55 | NUR ---
SHIFT SUMMARY: Pt admitted from ER this morning. She has been sleeping since admission, however she is more arousable as the day goes on. Pt attempts to sit up and reposition herself in bed with her eyes closed. She is becoming more redirectable. Rectal tube placed for lactulose enema. First rectal tube perforated during enema administration. Second tube placed, enema successfully administer, then pt had a very large BM effectivly self removing rectal tube. Her daughter, Kimberly, was updated via telephone and again at bedside. Daughter was sent home with pt's medication bag after med req completed, but left the patient's cell phone at bedside. Kimberly noted that pt expressed fear due to health concerns and living alone lately. Dried blood noted around pt's mouth; RN unable to visualize oral mucosa.
--- NOTE | 2024-05-12 17:52 | NUR ---
UPDATE: Pt's daughter called to complete MRI screening form; No answer. Dr Winn notified of pt status and inability to complete MRI screening form. Pt is now alert to voice and oriented to self and date. She is asking appropriate questions and declines the lactulose enema. See new orders.
[2024-05-12] MEDS ORDERED: Lactulose 20 GM/30 ML UDC PO SCH (21:00)
[2024-05-12] MEDS ORDERED: levETIRAcetam 1,000 MG in NS 100 ML IV SCH (21:00)
--- NOTE | 2024-05-12 21:24 | NUR ---
PT IN POSTICTAL STATE. AWAKENS WITH NURSING CARE AND QUICKLY FALLS BACK TO SLEEP. WHEN AWAKE PT ASKS WHAT DAY IT IS AND WHAT HAPPENED, AT TIMES SHE WILL REPEAT THE QUESTIONS. PT ON RA AND MAINTAINING 02 SATURATION ABOVE 93%, UNLABORED AND EVEN BREATHING. HR SR AND BP STABLE. NO BOWEL MOVEMEMNT SO FAR THIS SHIFT. PT WEARING ATTENDS W/PW AND CHANGED PRN. IV'S TO L AC AND R HAND PATENT, FLUSHED, AND SALINE LOCKED. PT RESTING IN BED AND CALL LIGHT WITHIN REACH.
[2024-05-13 04:00] VITALS: BP 118/96
[2024-05-13 04:10] LABS: BASOPHILS ABSOLUTE AUTO 0.03 K/mm3 (0.00-0.23); BASOPHILS PERCENT AUTO 1 % (0-2); EOSINOPHILS ABSOLUTE AUTO 0.09 K/mm3 (0.00-0.68); EOSINOPHILS PERCENT AUTO 2 % (0-6); Hematocrit 37.4 % (33.0-51.0); Hemoglobin 12.2 g/dL (11.5-16.0); IMMATURE GRAN PERCENT AUTO 0 % (0-1); LYMPHOCYTES ABSOLUTE AUTO 1.15 K/mm3 (0.84-5.20); LYMPHOCYTES PERCENT AUTO 27 % (21-46); MONOCYTES ABSOLUTE AUTO 0.47 K/mm3 (0.16-1.47); MONOCYTES PERCENT AUTO 11 % (4-13); Mean Corpuscular HGB 30.8 pg (26.0-34.0); Mean Corpuscular HGB Conc 32.6 g/dL (31.5-36.5); Mean Corpuscular Volume 94 fL (80-100); Mean Platelet Volume 9.6 fL (9.1-12.4); NEUTROPHILS ABSOLUTE AUTO 2.55 K/mm3 (1.96-9.15); NEUTROPHILS PERCENT AUTO 59 % (41-73); Platelet Count 87 K/mm3 (150-400); RDW Coefficient Variation 12.9 % (11.7-14.2); RDW Standard Deviation 44.8 fL (35.1-46.3); Red Blood Cell Count 3.96 M/mm3 (3.80-5.20); White Blood Cell Count 4.29 K/mm3 (4.00-11.30)
[2024-05-13 04:23] LABS: Bun/Creatinine Ratio 14.7 (12.0-20.0); Calcium, Blood 8.1 mg/dL (8.5-10.1); Creatinine, Blood 0.75 mg/dL (0.40-1.00); Potassium, Blood 3.7 mmol/L (3.5-5.5)
--- NOTE | 2024-05-13 05:45 | NUR ---
PT HAS SLEPT THE MAJORITY OF THE NIGHT. PT WOKE UP WHEN SHE HAD INCONTINENT VOID AND WAS BEING CHANGED/CLEANED UP. SHE ASKED WHERE SHE WAS, HOW LONG SHE HAS BEEN HERE FOR, AND WHAT TIME IT WAS. SHE QUICKLY FELL BACK TO SLEEP. UNLABORED AND EVEN BREATHING. SEIZURE PRECAUTIONS IN PLACE. BED ALARM ON FOR SAFETY. CALL LIGHT WITHIN REACH.
[2024-05-13] MEDS ORDERED: Pantoprazole Sodium 40 MG Injection IV SCH (06:00)
[2024-05-13] MEDS ORDERED: Enoxaparin 40 MG/0.4 ML SYR SC SCH (09:00)
[2024-05-13 09:29] VITALS: BP 130/65
[2024-05-13 12:10] VITALS: BP 120/61
--- NOTE | 2024-05-13 15:06 | NUR ---
PATIENT TO MRI
[2024-05-13 16:05] VITALS: BP 127/75
--- NOTE | 2024-05-13 16:30 | NUR ---
SHIFT SUMMARY PATIENT IS INCREASINGLY ALERT THIS SHIFT, STILL ONLY ORIENTED TO SELF. FREQUENTLY ASKS WHAT HAPPENED, WHERE SHE IS, WHERE IS HER DAUGHTER, AND DOES NOT UNDERSTAND RULES RELATED TO [employer] DAY ARTIST ANIMALS. NO SEIZURE ACTIVITY THIS SHIFT. PATIENT IS EASILY AGITATED WHEN DISCUSSION OF NOT BEING DISCHARGED AND HER DOG NOT STAYING WITH HER IN THE HOSPITAL. MINIMAL URINE OUTPUT AND NO BM THIS SHIFT, REPORTS FEELING URGE FOR BM, BUT REFUSES BED NICOLE. MRI COMPLETED THIS SHIFT AND DR. MESA UPDATED ON DAUGHTER REFUSAL FOR EEG. NO OTHER CHANGES THIS SHIFT.
[2024-05-13 20:06] VITALS: BP 141/72
[2024-05-13] MEDS ORDERED: Lacosamide 50 MG/5 ML Oral Solution 5ML PO SCH ×2 (21:00)
--- NOTE | 2024-05-13 21:48 | NUR ---
PT IS ALERT AND ORIENTED, BUT CONFUSED AT TIMES. SHE WAS HOLDING HER TELE BOX AND THOUGHT IT WAS HER PHONE AT ONE POINT. CONFUSED SPEECH AT TIMES. PT EDUCATED ON SLOW POSITION CHANGES SHE HAS SOME DIZZINESS WITH POSITION CHANGES, AND UNSTAEDY ON HER FEET AT TIMES. PT STOOD AND PIVOTED TO BEDSIDE COMMODE WITH SBA. BED ALARM ON FOR SAFETY. PT ON RA AND MAINTAINING 02 SATURTATION ABOVE 92% AND DENIES SOB. HR SR 70'S AND PT DENIES CHEST PAIN/PRESSURE. PT IS CONTINENT OF BLADDER AND BOWELS. SHE NEEDS REMINDING TO USE THE RESTROOM. BRIEF ON AND CHANGED PRN. PER DAY SHIFT PRIMARY RN, PT DID NOT HAVE INCONTINENT EPISODES TODAY. NO INCONTINENT EPISODES SO FAR THIS SHIFT. IV TO L AC AND R HAND PATENT, FLUSHED, SALINE LOCKED. SEIZURE PRECAUTIONS IN PLACE. PT RESTING IN BED AND CALL LIGHT WITHIN REACH.
[2024-05-13 23:07] VITALS: BP 138/58
[2024-05-14 03:05] VITALS: BP 140/73
--- NOTE | 2024-05-14 03:20 | NUR ---
SEIZURE PADS IN PLACE ON BED. PT LAYING TOWARDS THE END OF THE BED RESTING ON THE SIDE RAIL WITH PADDING. PT EDUCATED ON TWO SEPARATE OCCASIONS BY TWO [facility] THAT HER POSITION POSES A SAFETY RISK AND SHE WAS ASKED TO REPOSITION HERSELF IN BED. SHE REFUSED. BED ALARM ON AND KEEPING A CLOSE EYE ON PT.
[2024-05-14 04:24] LABS: Bun/Creatinine Ratio 21.3 (12.0-20.0); Creatinine, Blood 0.85 mg/dL (0.40-1.00); Potassium, Blood 3.5 mmol/L (3.5-5.5)
[2024-05-14] MEDS ORDERED: Omeprazole 20 MG CapCR PO SCH (06:00)
--- NOTE | 2024-05-14 06:36 | NUR ---
NO ACUTE CHANGES, SEE PREVIOUS NOTES. PT ENDED UP RE-POSITIONING HERSELF IN BED AND HAS BEEN RESTING SINCE. SEIZURE PRECAUTIONS STILL BEING TAKEN. BED ALARM STILL ON FOR SAFETY. CALL LIGHT WITHIN REACH.
[2024-05-14 08:07] VITALS: BP 157/87
[2024-05-14] MEDS ORDERED: Ascorbic Acid 500 MG Tab PO SCH (09:00)
[2024-05-14] MEDS ORDERED: Aspirin 81 MG Chew PO SCH (09:00)
[2024-05-14] MEDS ORDERED: Furosemide 20 MG Tab PO SCH (09:00)
[2024-05-14] MEDS ORDERED: Lactulose 20 GM/30 ML UDC PO SCH (09:00)
[2024-05-14] MEDS ORDERED: Losartan Potassium 25 MG Tab PO SCH (09:00)
[2024-05-14] MEDS ORDERED: Atorvastatin 40 MG Tab PO SCH (09:00)
[2024-05-14] MEDS ORDERED: Magnesium Oxide 400 MG Tab PO SCH (09:00)
[2024-05-14] MEDS ORDERED: Calcium/Vit D 600 mg-400 Unit Tab PO SCH (09:00)
[2024-05-14] MEDS ORDERED: Cholecalciferol 1000 Unit Tablet (=25MCG) PO SCH (09:00)
[2024-05-14] MEDS ORDERED: Erythromycin 0.5% Opth Oint 3.5 gm BOTHEYES SCH (10:00)
[2024-05-14] MEDS ORDERED: LACT10SY PO (10:31)
[2024-05-14] MEDS ORDERED: ERYT.5TO BOTHEYES (10:32)
--- NOTE | 2024-05-14 12:10 | NUR ---
Spiritual care visit conducted. Patient is lying in bed and alert. She immediately tells me about her family unit complications, her seizure activity and her fears of being forced to relocate. She is tearful at times and expresses that she would "rather " than be forced out of her home while she is still able to manage. We discuss the reasons that her family may be trying to intervene and could there a charitable intent. For some family members she is convince there is no nobility and others she is willing to see some possible good intentions. She talks extensively about her dog Jorge and how her dtr took the dog to the dtr[place]. The patient is upset about this as well. I provided anxiety containment, therapeutic listening, gentle cousel and a calming presence. Patient responded well and showed signs of decreased stress.
--- NOTE | 2024-05-14 12:15 | NUR ---
DISCHARGE: PT'S DAUGHTER EXPRESSES CONCERN ABOUT PT GOING TO HOME TO LIVE BY HERSELF AND TAKE CARE OF HER OWN NEEDS BUT PT HAS PASSED ALL EVALUATION TESTS. PT HAS BEEN CLEARED FOR DISCHARGE HOME W/HOME HEALTH, PT'S DAUGHTER UPDATED VIA TELEPHONE. ALL IV ACCESS DC'd WNL, PT DRESSES SELF. DC PAPERWORK PROVIDED TO PT, ALL QUESTIONS HAVE BEEN ANSWERED. PT ESCORTED FROM UNIT VIA W/C TO WAITING RIDE.
== END 2024-05-14 12:17 | disposition home or self-care (01) | DRG 101 ==
LOC: ER 22:29 → PCU 05-12 08:52
PROVIDERS: Internal Medicine; Student in an Organized Health Care Education/Training Program; ADMIT Family Medicine
DX: R56.9 Unspecified convulsions (principal); E87.20 Acidosis, unspecified; E72.20 Disorder of urea cycle metabolism, unspecified; K76.82 Hepatic encephalopathy; B18.2 Chronic viral hepatitis C; K74.60 Unspecified cirrhosis of liver; D69.6 Thrombocytopenia, unspecified; K21.9 Gastro-esophageal reflux disease without esophagitis; H10.89 Other conjunctivitis; E78.5 Hyperlipidemia, unspecified; Z88.2 Allergy status to sulfonamides; Z88.1 Allergy status to other antibiotic agents; Z88.0 Allergy status to penicillin; Z88.8 Allergy status to other drugs, medicaments and biological substances; Z79.82 Long term (current) use of aspirin; Z79.899 Other long term (current) drug therapy; Z79.01 Long term (current) use of anticoagulants; Z86.16 Personal history of COVID-19; Z98.890 Other specified postprocedural states; Z90.49 Acquired absence of other specified parts of digestive tract
CPT/HCPCS: 0241U; 36415; 51701; 70450; 70551; 80048; 80053; 81001; 82140; 82550; 82803; 82947; 83605; 83735; 84484; 85025; 87086; 93005; 93010; 96361-59; 96365-59; 96366-59; 96375-59; 97162; 99285-25; A9270; C9113; J1650; J1885; J1953; J2060; J2765; J7030; J7120

== ENCOUNTER 2024-07-01 16:58 | Inpatient (IN) | payer MEDICARE ==
[~2024-07-01] VITALS: Ht 147.3 cm; Wt 63.5 kg
[~2024-07-01 16:58] MED LIST changes: +ERYT.5TO BOTHEYES; +LACO50TA2 PO; +LACT10SY PO
[2024-07-01] MEDS ORDERED: Diphth,Pertuss(Acell),Tet Vac 0.5 ML VIAL IM ONE (17:15)
[2024-07-01 17:27] LABS: BASOPHILS ABSOLUTE AUTO 0.04 K/mm3 (0.00-0.23); BASOPHILS PERCENT AUTO 1 % (0-2); EOSINOPHILS ABSOLUTE AUTO 0.08 K/mm3 (0.00-0.68); EOSINOPHILS PERCENT AUTO 1 % (0-6); Hematocrit 40.1 % (33.0-51.0); Hemoglobin 13.6 g/dL (11.5-16.0); IMMATURE GRAN ABSOLUTE AUTO 0.03 K/mm3 (0.00-0.10); IMMATURE GRAN PERCENT AUTO 1 % (0-1); LYMPHOCYTES ABSOLUTE AUTO 0.85 K/mm3 (0.84-5.20); LYMPHOCYTES PERCENT AUTO 15 % (21-46); MONOCYTES ABSOLUTE AUTO 0.42 K/mm3 (0.16-1.47); MONOCYTES PERCENT AUTO 7 % (4-13); Mean Corpuscular HGB 31.6 pg (26.0-34.0); Mean Corpuscular HGB Conc 33.9 g/dL (31.5-36.5); Mean Corpuscular Volume 93 fL (80-100); Mean Platelet Volume 9.8 fL (9.1-12.4); NEUTROPHILS ABSOLUTE AUTO 4.42 K/mm3 (1.96-9.15); NEUTROPHILS PERCENT AUTO 76 % (41-73); Platelet Count 127 K/mm3 (150-400); RDW Coefficient Variation 13.2 % (11.7-14.2); RDW Standard Deviation 45.7 fL (35.1-46.3); Red Blood Cell Count 4.31 M/mm3 (3.80-5.20); White Blood Cell Count 5.84 K/mm3 (4.00-11.30)
[2024-07-01] MEDS ORDERED: Ondansetron HCl 2 MG / ML 2ML Vial IV ONE (17:30)
[2024-07-01 17:38] LABS: International Normalized Ratio 1.11; Prothrombin Time Results 11.8 Sec (9.7-11.5)
[2024-07-01 17:43] LABS: Alanine Aminotransfer (ALT/SGP 56 U/L (12-78); Albumin, Blood 3.4 g/dL (3.4-5.0); Alk Phos 93 U/L (50-136); Anion Gap 9 mmol/L (3-11); Aspartate Aminotrans (AST/SGOT 52 U/L (12-37); Bilirubin, Total 1.1 mg/dL (0.1-1.0); Blood Urea Nitrogen 9 mg/dL (8-24); Bun/Creatinine Ratio 12.5 (12.0-20.0); CO2, Blood 25 mmol/L (21-32); Calcium, Blood 8.8 mg/dL (8.5-10.1); Chloride, Blood 108 mmol/L (98-108); Creatinine, Blood 0.72 mg/dL (0.40-1.00); Globulin, Blood 3.3 g/dL (2.2-4.0); Glomerular Filtration Rate 88 (60-); Glucose, Blood 117 mg/dL (70-99); Magnesium, Blood 1.6 mg/dL (1.6-2.4); Sodium, Blood 138 mmol/L (136-145); Total Protein, Blood 6.7 g/dL (6.4-8.2)
[2024-07-01] MEDS ORDERED: Lacosamide 100 MG IV ONE (18:55)
[2024-07-01] MEDS ORDERED: FentaNYL Citrate 50 MCG/ML 2 ML Injection IV ONE (20:05)
[2024-07-01] MEDS ORDERED: HYDROmorphone HCl/Pf 1MG SYR IV ONE (20:45)
[2024-07-01 22:09] LABS: Ethanol (Alcohol), Blood, Med <3 mg/dL
[2024-07-01] MEDS ORDERED: Acetaminophen 325 MG TABLET PO PRN (22:10)
[2024-07-02 00:30] VITALS: BP 126/66
[2024-07-02 01:12] LABS: BASOPHILS ABSOLUTE AUTO 0.02 K/mm3 (0.00-0.23); BASOPHILS PERCENT AUTO 0 % (0-2); EOSINOPHILS ABSOLUTE AUTO 0.02 K/mm3 (0.00-0.68); EOSINOPHILS PERCENT AUTO 0 % (0-6); Hematocrit 40.9 % (33.0-51.0); Hemoglobin 14.1 g/dL (11.5-16.0); IMMATURE GRAN ABSOLUTE AUTO 0.03 K/mm3 (0.00-0.10); IMMATURE GRAN PERCENT AUTO 0 % (0-1); LYMPHOCYTES ABSOLUTE AUTO 0.69 K/mm3 (0.84-5.20); LYMPHOCYTES PERCENT AUTO 7 % (21-46); MONOCYTES ABSOLUTE AUTO 0.41 K/mm3 (0.16-1.47); MONOCYTES PERCENT AUTO 4 % (4-13); Mean Corpuscular HGB 31.8 pg (26.0-34.0); Mean Corpuscular HGB Conc 34.5 g/dL (31.5-36.5); Mean Corpuscular Volume 92 fL (80-100); Mean Platelet Volume 9.9 fL (9.1-12.4); NEUTROPHILS ABSOLUTE AUTO 8.15 K/mm3 (1.96-9.15); NEUTROPHILS PERCENT AUTO 88 % (41-73); Platelet Count 122 K/mm3 (150-400); RDW Coefficient Variation 13.4 % (11.7-14.2); RDW Standard Deviation 46.2 fL (35.1-46.3); Red Blood Cell Count 4.43 M/mm3 (3.80-5.20); White Blood Cell Count 9.32 K/mm3 (4.00-11.30)
[2024-07-02 01:32] LABS: CHOL/HDL RATIO 1.7; Cholesterol 124 mg/dL (50-200); HDL Cholesterol 74 mg/dL (>39); LDL/HDL RATIO 0.5; Low Density Lipoprotein Chol 37 mg/dL (0-110); Triglycerides 66 mg/dL (30-160); Very Low Density Lipoprot Chol 13 mg/dL (6-32)
--- NOTE | 2024-07-02 03:35 | NUR ---
Pt received from ED via inFreeDA. Pt awake, alert, confused. R ight arm in splint. Pt able to stand independently useing support. affect flat. Pt stated she is sad, and doesnt understand why she fell. abraisionj noted to right shoulder. Abraision noted to left knee. pt c/o pain with activity to right knee. pt able to bear weight. pt denies need for pain meds. pt unable to recall medication list/ hx. pt unable to recall medical hx details. resting quietly in bed at this time.
[2024-07-02 04:05] VITALS: BP 124/68
[2024-07-02 07:21] VITALS: BP 147/74
[2024-07-02] MEDS ORDERED: Enoxaparin 40 MG/0.4 ML SYR SC SCH ×2 (09:00)
[2024-07-02] MEDS ORDERED: Lacosamide 200 MG/20 ML 20ML Vial IV SCH ×2 (09:00)
[2024-07-02 09:43] LABS: Bun/Creatinine Ratio 12.6 (12.0-20.0); Calcium, Blood 9.2 mg/dL (8.5-10.1); Creatinine, Blood 0.79 mg/dL (0.40-1.00); Potassium, Blood 4.5 mmol/L (3.5-5.5)
[2024-07-02] MEDS ORDERED: Zinc Oxide Ointment 30 GM TOP PRN (11:10)
[2024-07-02 15:02] VITALS: BP 131/66
[2024-07-02] MEDS ORDERED: Lactulose 20 GM/30 ML UDC PO SCH ×2 (16:45→21:00)
[2024-07-02 17:04] LABS: Source, Urine Clean Catch
[2024-07-02 17:10] LABS: Appearance, Urine Clear (Clear); Bilirubin, Urine Neg (Neg); Blood, Urine 1+ (Neg); Color, Urine Yellow (P-Yellow); Glucose Qualitative, Urine Neg (Neg); Ketones, Urine Neg (Neg); Leukocyte Esterase, Urine 1+ (Neg); Nitrite, Urine Neg (Neg); Protein, Urine 2+ (Neg); Urobilinogen, Urine 2+ (Normal)
[2024-07-02 17:19] LABS: Bacteria Few /hpf; Squamous Epithelial Cells Few /hpf (Few)
[2024-07-02 17:20] LABS: Transitional Epithelial Cells Rare /hpf (0-Rare)
--- NOTE | 2024-07-02 18:04 | NUR ---
SHIFT SUMMARY: PT A/O X4 THIS SHIFT. PLEASANT AND COOPERATIVE. MRI COMPLETED THIS AM. ECCO ORDERED AND COMPLETED. NO RESULTS OF THIS TIME. PT/OT WORKED WITH PT THIS AM. PT 1P ASSIST c FWW AND GB. PT C/O PAIN ONCE ON R. SIDE OF HEAD/FACE. MED REC COMPLETED. AWARE AND PLACED ORDERS FOR MEDS STARTING TONIGHT/TOMORROW AM. UA OBTAINED AND SENT TO LAB. ORTHO CONSULT PLACED THIS SHIFT. SPOKE WITH [employer] SERVICE AROUND [address] VENTURA. PT CONCERNED ABOUT HER SERVICE DOG AND BEGAN TO BE ANXIOUS STATING SHE WANTED TO GO HOME TO CHECK ON HIM. NEIGHBOR OF PT HAS DOG AT THIS TIME. DR. RODRIGEZ SPOKE WITH PT STATING SHE COULD HAVE DOG IN HOSPITAL. HAVE NOT SEEN PT DOG SO FAR THIS SHIFT. CALL LIGHT IN REACH. BED IN LOWEST POSITION. BED ALARM ON.
[2024-07-02] MEDS ORDERED: Erythromycin 0.5% Opth Oint 3.5 gm BOTHEYES SCH (20:00)
[2024-07-02 20:13] VITALS: BP 147/84
[2024-07-02] MEDS ORDERED: Ketoconazole 2% Cream 15 GM TOP SCH (21:00)
[2024-07-03] VITALS (11 sets, daily range): BP systolic 112–158; BP diastolic 61–100
[2024-07-03] MEDS ORDERED: Omeprazole 20 MG CapCR PO SCH (06:00)
--- NOTE | 2024-07-03 06:00 | NUR ---
SHIFT SUMMARY PATIENT ALERT AND ORIENTATED TIMES 4. PATIENT ADVISED THAT SHE HAD FORGOT TO TELL ED LUDWIG SHE WAS ALSO ON DOXYCYOLINE PO. 2. TWO TABS FOR 30 DAYS AND THEN ONE TAB FOR 30 DAYS. SHE STATES SHE HAS ABOOUT 20 LEFT. 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 LIFE SKILLS COORDINATOR STATED IT WAS SAFE TO GIVE. PT ALSO WANTED TO LET KNOW THAT SHE HAD A UTI SEVERAL MONTH AGO AND THAT HER BODY SEEMS VERY SUSSEPTABLE TO INFECTIONS. SHE WANTED TO KNOW IF HER RESULTS WERE BACK FROM LAB AND IF SHE HAD A UTI NOW. SHE ASKED IF SHE COULD TAKE HER SPLINT OFF FOR A WHILE SHE WAS UNCOMFORTABLE. OFFERED TYLENOL FOR PAIN. PATIENT WAS ADMINSTERED LACOSAMIDE IV 60ML@ 120ML/HR. PATIENT TOLERATED WELL. PATIENT WAS NPO AFTER MIDNIGHT POSSIBLE SURGURY THIS MORNING 07/03. PT APPEARED TO SLEEP ON AND OFF THROUGH THE NIGHT WITHOUT ISSUE. BED IN LOW POSITION, RAILS TIMES TWO, AND CALL LIGHT WITHIN REACH.
[2024-07-03 06:11] LABS: BASOPHILS ABSOLUTE AUTO 0.03 K/mm3 (0.00-0.23); BASOPHILS PERCENT AUTO 1 % (0-2); EOSINOPHILS ABSOLUTE AUTO 0.12 K/mm3 (0.00-0.68); EOSINOPHILS PERCENT AUTO 2 % (0-6); Hematocrit 39.2 % (33.0-51.0); Hemoglobin 13.2 g/dL (11.5-16.0); IMMATURE GRAN ABSOLUTE AUTO 0.01 K/mm3 (0.00-0.10); IMMATURE GRAN PERCENT AUTO 0 % (0-1); LYMPHOCYTES PERCENT AUTO 20 % (21-46); MONOCYTES ABSOLUTE AUTO 0.64 K/mm3 (0.16-1.47); MONOCYTES PERCENT AUTO 11 % (4-13); Mean Corpuscular HGB 31.7 pg (26.0-34.0); Mean Corpuscular HGB Conc 33.7 g/dL (31.5-36.5); Mean Corpuscular Volume 94 fL (80-100); Mean Platelet Volume 9.8 fL (9.1-12.4); NEUTROPHILS ABSOLUTE AUTO 3.89 K/mm3 (1.96-9.15); NEUTROPHILS PERCENT AUTO 66 % (41-73); Platelet Count 94 K/mm3 (150-400); RDW Coefficient Variation 13.3 % (11.7-14.2); RDW Standard Deviation 45.7 fL (35.1-46.3); Red Blood Cell Count 4.16 M/mm3 (3.80-5.20); White Blood Cell Count 5.89 K/mm3 (4.00-11.30)
[2024-07-03 06:32] LABS: Albumin, Blood 3.2 g/dL (3.4-5.0); Bun/Creatinine Ratio 17.5 (12.0-20.0); Calcium, Blood 9.1 mg/dL (8.5-10.1); Creatinine, Blood 0.74 mg/dL (0.40-1.00); Globulin, Blood 3.2 g/dL (2.2-4.0); Potassium, Blood 3.8 mmol/L (3.5-5.5); Total Protein, Blood 6.4 g/dL (6.4-8.2)
[2024-07-03] MEDS ORDERED: Losartan Potassium 25 MG Tab PO SCH (09:00)
[2024-07-03] MEDS ORDERED: Furosemide 20 MG Tab PO SCH (09:00)
[2024-07-03] MEDS ORDERED: Atorvastatin 40 MG Tab PO SCH (09:00)
[2024-07-03] MEDS ORDERED: Aspirin 81 MG Chew PO SCH (09:00)
[2024-07-03] MEDS ORDERED: Lactated Ringer's 1,000 ML IV SCH (12:50)
[2024-07-03] MEDS ORDERED: CeFAZolin Sodium 2,000 MG in NS 100 ML IV SCH (13:40)
--- NOTE | 2024-07-03 13:44 | NUR ---
PT HAS 20G IV TO LEFT AC THAT FLUSHES WELL AND FLOWS TO GRAVITY.
--- NOTE | 2024-07-03 13:56 | NUR ---
PT BROUGHT FROM FLOOR TO DAY SURGERY FOR PROCEDURE. History, Chart, Medications and Allergies reviewed before start of procedure. Lungs clear T/O to Auscultation. Patient confirms NPO status and agrees with scheduled surgery. Pre-Op teaching done. Pt verbalizes understanding. PT BELONGINGS LEFT IN PERSONAL ROOM ON MEDICAL FLOOR.
[2024-07-03] MEDS ORDERED: Bupivacaine 0.5% HCl 5 MG/ML 30MLVIAL ONE (14:36)
[2024-07-03] MEDS ORDERED: FentaNYL Citrate 50 MCG/ML 2 ML Injection ONE (14:37)
[2024-07-03] MEDS ORDERED: Midazolam HCl 1MG / ML 2ML Vial ONE (14:38)
--- NOTE | 2024-07-03 14:58 | NUR ---
1442: Dr. Broderick at bedside to perform nerve block in preop. Time out complete by RN. 1443: Premeds given by Dr. Broderick, see anesthesia notes. 1447: Block time start. 1454: Block time end. VSS monitored and stable throughout duration. Pt tolerated well.
[2024-07-03] MEDS ORDERED: propofoL 20 ML IV ONE (15:05)
[2024-07-03] MEDS ORDERED: LOSARTAN POTAS100 M1 PO (15:25)
[2024-07-03] MEDS ORDERED: CARV3.125 PO (15:26)
[2024-07-03] MEDS ORDERED: Dexamethasone Sod Phos 10 MG/ML 1ML VIAL ONE (15:38)
[2024-07-03] MEDS ORDERED: Ondansetron HCl 2 MG / ML 2ML Vial ONE ×2 (15:38→16:51)
--- NOTE | 2024-07-03 18:38 | NUR ---
SHIFT SUMMARY: PATIENT IS A&OX4. PATIENT TRANSFERS WITH SBA AND GAIT BELT. PATIENT WENT TO OR FOR ORIF OF RIGHT WRIST TODAY AND RETURNED TO MEDICAL FLOOR AT 1724. PATIENT RETURNED ON 3L, SHE IS NOW ON RA. PATIENT IS PLEASANT AND COOPERATIVE OF ALL CARES. PATIENT HAS EXPERIENCED MILD ANXIETY R/T HAVING SURGERY. CURRENLY NOT EXPERIENCING PAIN. VS STABLE. POSSIBLE DISCHARGE TOMORROW. BED IN LOW POSITION AND CALL LIGHT WITHIN REACH.
[2024-07-03] MEDS ORDERED: Lacosamide 50 MG/5 ML Oral Solution 5ML PO SCH (21:00)
[2024-07-04 02:18] VITALS: BP 125/60
[2024-07-04 06:27] LABS: BASOPHILS ABSOLUTE AUTO 0.01 K/mm3 (0.00-0.23); BASOPHILS PERCENT AUTO 0 % (0-2); EOSINOPHILS ABSOLUTE AUTO 0.02 K/mm3 (0.00-0.68); EOSINOPHILS PERCENT AUTO 0 % (0-6); Hematocrit 38.2 % (33.0-51.0); IMMATURE GRAN ABSOLUTE AUTO 0.02 K/mm3 (0.00-0.10); IMMATURE GRAN PERCENT AUTO 0 % (0-1); LYMPHOCYTES ABSOLUTE AUTO 0.66 K/mm3 (0.84-5.20); LYMPHOCYTES PERCENT AUTO 6 % (21-46); MONOCYTES ABSOLUTE AUTO 0.88 K/mm3 (0.16-1.47); MONOCYTES PERCENT AUTO 8 % (4-13); Mean Corpuscular Volume 94 fL (80-100); Mean Platelet Volume 9.9 fL (9.1-12.4); NEUTROPHILS ABSOLUTE AUTO 8.98 K/mm3 (1.96-9.15); NEUTROPHILS PERCENT AUTO 85 % (41-73); Platelet Count 103 K/mm3 (150-400); RDW Coefficient Variation 13.1 % (11.7-14.2); RDW Standard Deviation 45.7 fL (35.1-46.3); Red Blood Cell Count 4.06 M/mm3 (3.80-5.20); White Blood Cell Count 10.57 K/mm3 (4.00-11.30)
[2024-07-04 06:50] LABS: Albumin/Globulin Ratio 0.8 (0.8-1.8); Bilirubin, Total 1.2 mg/dL (0.1-1.0); Bun/Creatinine Ratio 19.4 (12.0-20.0); Creatinine, Blood 0.77 mg/dL (0.40-1.00); Globulin, Blood 3.6 g/dL (2.2-4.0); Potassium, Blood 4.1 mmol/L (3.5-5.5); Total Protein, Blood 6.6 g/dL (6.4-8.2)
[2024-07-04 07:22] VITALS: BP 151/74
--- NOTE | 2024-07-04 07:48 | NUR ---
SHIFT SUMMARY, AWAKE AND TALKATIVE, CIRC CHECK TO R FINGERS, WNL. REMAINS IN SLING, ELEVATED ON 2 PILLOWS. TELE SR 66. DENIES ANY PAIN ALL SHIFT
[2024-07-04] MEDS ORDERED: Ketoconazole15 GM TOP (12:51)
[2024-07-04] MEDS ORDERED: ZINCTRAL57 GM TOP (12:52)
--- NOTE | 2024-07-04 13:19 | NUR ---
DISCHARGE NOTE PATIENT A/OX4, ABLE TO MAKE NEEDS KNOWN. COOPERATIVE AND PLEASANT WITH STAFF, ANXIOUS FOR DISCHARGE ALL SHIFT. DISCHARGE ORDERS RECIEVED AT 1200, PIV AND TELEMTRY REMOVED. PATIENT DENIED PAIN THIS AM. DISCHARGE INSTRUCTIONS DISCUSSED, EDUCATION PROVIDED REGARDING FOLLOW UP APPOINTMENTS WITH NEUROLOGY, ORTHO, AND PRIMARY CARE. PATIENT WITH NO QUESTIONS AT TIME OF DISCHARGE. ASSISTED TO FRIEND'S VEHICLE AT 1320.
== END 2024-07-04 13:20 | disposition home health service (06) | DRG 563 ==
LOC: ER 16:58 → MEDS 16:59
PROVIDERS: Family Medicine; Student in an Organized Health Care Education/Training Program; ADMIT Internal Medicine
PROC: 2W38X1Z Immobilization of Right Upper Extremity using Splint (ICD-10-PCS; principal; 2024-07-01)
DX: S52.611A Displaced fracture of right ulna styloid process, initial encounter for closed fracture (principal); I50.32 Chronic diastolic (congestive) heart failure; G45.9 Transient cerebral ischemic attack, unspecified; R55 Syncope and collapse; R74.01 Elevation of levels of liver transaminase levels; D69.6 Thrombocytopenia, unspecified; K74.60 Unspecified cirrhosis of liver; K21.9 Gastro-esophageal reflux disease without esophagitis; I11.0 Hypertensive heart disease with heart failure; B19.20 Unspecified viral hepatitis C without hepatic coma; R29.810 Facial weakness; Z60.2 Problems related to living alone; G40.909 Epilepsy, unspecified, not intractable, without status epilepticus; S52.501A Unspecified fracture of the lower end of right radius, initial encounter for closed fracture; S09.90XA Unspecified injury of head, initial encounter; L30.4 Erythema intertrigo; R00.1 Bradycardia, unspecified; B37.2 Candidiasis of skin and nail; Z88.8 Allergy status to other drugs, medicaments and biological substances; Z88.0 Allergy status to penicillin; Z88.2 Allergy status to sulfonamides; Z88.1 Allergy status to other antibiotic agents; Z79.899 Other long term (current) drug therapy; Z79.82 Long term (current) use of aspirin; Z79.01 Long term (current) use of anticoagulants; Z79.2 Long term (current) use of antibiotics; Z86.16 Personal history of COVID-19; Z98.890 Other specified postprocedural states; Z90.49 Acquired absence of other specified parts of digestive tract; Z87.891 Personal history of nicotine dependence; W18.30XA Fall on same level, unspecified, initial encounter
CPT/HCPCS: 29125; 36415; 70450; 70496; 70498; 70551; 71045; 72125; 73030; 73080; 73100; 73110; 80048; 80053; 80061; 80320; 81001; 82550; 83036; 83735; 84443; 85025; 85610; 86850; 86900; 86901; 87086; 90715; 93005; 93010; 93306; 96365-59; 96366; 96372; 96374-59; 96375-59; 97110; 97162; 97165; 97530; 97535; 99285-25; A9270; C1713; C9254; G0378; J0690; J1100; J1170; J1650; J2250; J2405; J2704; J3010; J7120; Q9967

== ENCOUNTER 2024-10-31 13:41 | Emergency (ER) | payer MEDICARE ==
[~2024-10-31] VITALS: Ht 149.9 cm; Wt 68.0 kg
[~2024-10-31 13:41] MED LIST changes: +CARV3.125 PO; +Ketoconazole15 GM TOP; +LOSARTAN POTAS100 M1 PO; +ZINCTRAL57 GM TOP
[2024-10-31 14:59] LABS: BASOPHILS ABSOLUTE AUTO 0.07 K/mm3 (0.00-0.23); BASOPHILS PERCENT AUTO 1 % (0-2); EOSINOPHILS ABSOLUTE AUTO 0.16 K/mm3 (0.00-0.68); EOSINOPHILS PERCENT AUTO 2 % (0-6); Hematocrit 42.4 % (33.0-51.0); Hemoglobin 14.5 g/dL (11.5-16.0); IMMATURE GRAN ABSOLUTE AUTO 0.02 K/mm3 (0.00-0.10); IMMATURE GRAN PERCENT AUTO 0 % (0-1); LYMPHOCYTES ABSOLUTE AUTO 1.57 K/mm3 (0.84-5.20); LYMPHOCYTES PERCENT AUTO 21 % (21-46); MONOCYTES ABSOLUTE AUTO 0.74 K/mm3 (0.16-1.47); MONOCYTES PERCENT AUTO 10 % (4-13); Mean Corpuscular HGB 32.4 pg (26.0-34.0); Mean Corpuscular HGB Conc 34.2 g/dL (31.5-36.5); Mean Corpuscular Volume 95 fL (80-100); Mean Platelet Volume 9.7 fL (9.1-12.4); NEUTROPHILS ABSOLUTE AUTO 4.83 K/mm3 (1.96-9.15); NEUTROPHILS PERCENT AUTO 65 % (41-73); Platelet Count 146 K/mm3 (150-400); RDW Coefficient Variation 12.8 % (11.7-14.2); RDW Standard Deviation 44.2 fL (35.1-46.3); Red Blood Cell Count 4.48 M/mm3 (3.80-5.20); White Blood Cell Count 7.39 K/mm3 (4.00-11.30)
[2024-10-31 15:37] LABS: Albumin/Globulin Ratio 1.2 (0.8-1.8); Bilirubin, Total 1.3 mg/dL (0.1-1.0); Bun/Creatinine Ratio 18.5 (12.0-20.0); Calcium, Blood 9.3 mg/dL (8.5-10.1); Creatinine, Blood 0.76 mg/dL (0.40-1.00); Globulin, Blood 3.4 g/dL (2.2-4.0); Magnesium, Blood 2.1 mg/dL (1.6-2.4); Total Protein, Blood 7.4 g/dL (6.4-8.2)
[2024-10-31 17:40] VITALS: BP 167/97
[2024-10-31 18:11] LABS: Source, Urine Clean Catch
[2024-10-31 18:13] LABS: Appearance, Urine Clear (Clear); Bilirubin, Urine Neg (Neg); Blood, Urine Neg (Neg); Color, Urine Yellow (P-Yellow); Glucose Qualitative, Urine Neg (Neg); Ketones, Urine 1+ (Neg); Leukocyte Esterase, Urine 1+ (Neg); Nitrite, Urine Neg (Neg); Protein, Urine Neg (Neg); Urobilinogen, Urine NORM (Normal)
[2024-10-31 18:20] LABS: Bacteria Few /hpf; Red Blood Cells, Urine 0-2 /hpf (0-2); Squamous Epithelial Cells Rare /hpf (Few); White Blood Cells, Urine 0-2 /hpf (0-5)
[2024-10-31] MEDS ORDERED: Lactulose 20 GM/30 ML UDC PO ONE (18:35)
== END 2024-10-31 21:25 | disposition home or self-care (01) ==
LOC: ER 13:41
PROVIDERS: Physician Assistant
DX: E72.20 Disorder of urea cycle metabolism, unspecified (principal); R40.4 Transient alteration of awareness; I10 Essential (primary) hypertension; K21.9 Gastro-esophageal reflux disease without esophagitis; Z86.69 Personal history of other diseases of the nervous system and sense organs; Z87.891 Personal history of nicotine dependence; Z79.82 Long term (current) use of aspirin; Z79.899 Other long term (current) drug therapy; Z88.0 Allergy status to penicillin; Z88.2 Allergy status to sulfonamides; Z88.1 Allergy status to other antibiotic agents; Z88.8 Allergy status to other drugs, medicaments and biological substances
CPT/HCPCS: 70450; 73130; 80053; 81001; 82140; 83735; 85025; 87086; 99285-25; A9270

== ENCOUNTER 2024-11-28 13:37 | Emergency (ER) | payer MEDICARE ==
[~2024-11-28] VITALS: Ht 149.9 cm; Wt 72.6 kg
[2024-11-28 14:05] VITALS: BP 159/63
[2024-11-28 15:26] LABS: BASOPHILS ABSOLUTE AUTO 0.06 K/mm3 (0.00-0.23); BASOPHILS PERCENT AUTO 1 % (0-2); EOSINOPHILS ABSOLUTE AUTO 0.13 K/mm3 (0.00-0.68); EOSINOPHILS PERCENT AUTO 3 % (0-6); Hematocrit 42.2 % (33.0-51.0); Hemoglobin 14.5 g/dL (11.5-16.0); IMMATURE GRAN ABSOLUTE AUTO 0.01 K/mm3 (0.00-0.10); IMMATURE GRAN PERCENT AUTO 0 % (0-1); LYMPHOCYTES PERCENT AUTO 24 % (21-46); MONOCYTES ABSOLUTE AUTO 0.43 K/mm3 (0.16-1.47); MONOCYTES PERCENT AUTO 9 % (4-13); Mean Corpuscular HGB 32.3 pg (26.0-34.0); Mean Corpuscular HGB Conc 34.4 g/dL (31.5-36.5); Mean Corpuscular Volume 94 fL (80-100); Mean Platelet Volume 9.5 fL (9.1-12.4); NEUTROPHILS ABSOLUTE AUTO 3.21 K/mm3 (1.96-9.15); NEUTROPHILS PERCENT AUTO 64 % (41-73); Platelet Count 127 K/mm3 (150-400); RDW Coefficient Variation 13.1 % (11.7-14.2); RDW Standard Deviation 44.8 fL (35.1-46.3); Red Blood Cell Count 4.49 M/mm3 (3.80-5.20); White Blood Cell Count 5.04 K/mm3 (4.00-11.30)
[2024-11-28 15:48] LABS: Albumin, Blood 3.9 g/dL (3.4-5.0); Albumin/Globulin Ratio 1.1 (0.8-1.8); Calcium, Blood 9.5 mg/dL (8.5-10.1); Creatinine, Blood 0.65 mg/dL (0.40-1.00); Globulin, Blood 3.7 g/dL (2.2-4.0); Potassium, Blood 3.8 mmol/L (3.5-5.5); Total Protein, Blood 7.6 g/dL (6.4-8.2)
== END 2024-11-28 16:42 | disposition home or self-care (01) ==
LOC: ER 13:37
PROVIDERS: Student in an Organized Health Care Education/Training Program
DX: K74.69 Other cirrhosis of liver (principal); G40.909 Epilepsy, unspecified, not intractable, without status epilepticus; I10 Essential (primary) hypertension; K21.9 Gastro-esophageal reflux disease without esophagitis; E78.5 Hyperlipidemia, unspecified; Z87.891 Personal history of nicotine dependence; Z86.73 Personal history of transient ischemic attack (TIA), and cerebral infarction without residual deficits; Z86.16 Personal history of COVID-19; Z88.8 Allergy status to other drugs, medicaments and biological substances; Z88.0 Allergy status to penicillin; Z88.2 Allergy status to sulfonamides; Z88.1 Allergy status to other antibiotic agents; Z88.4 Allergy status to anesthetic agent; Z79.82 Long term (current) use of aspirin; Z79.899 Other long term (current) drug therapy
CPT/HCPCS: 80053; 82140; 85025; 93005; 93010; 99284-25

== ENCOUNTER 2024-12-10 01:38 | Emergency (ER) | payer MEDICARE ==
[~2024-12-10] VITALS: Ht 149.9 cm; Wt 72.6 kg
[2024-12-10 01:40] VITALS: BP 165/90
== END 2024-12-10 04:08 | disposition home or self-care (01) ==
LOC: ER 01:38
DX: R11.0 Nausea (principal); Z87.891 Personal history of nicotine dependence; I10 Essential (primary) hypertension; K21.9 Gastro-esophageal reflux disease without esophagitis; G40.909 Epilepsy, unspecified, not intractable, without status epilepticus; K74.60 Unspecified cirrhosis of liver; Z88.0 Allergy status to penicillin; Z88.2 Allergy status to sulfonamides; Z88.8 Allergy status to other drugs, medicaments and biological substances; Z88.1 Allergy status to other antibiotic agents; Z88.4 Allergy status to anesthetic agent; Z79.811 Long term (current) use of aromatase inhibitors; Z79.82 Long term (current) use of aspirin; Z79.52 Long term (current) use of systemic steroids; Z79.899 Other long term (current) drug therapy; Z79.02 Long term (current) use of antithrombotics/antiplatelets; Z79.2 Long term (current) use of antibiotics
CPT/HCPCS: 99283

== ENCOUNTER → 2025-01-02 | Outpatient (CLI) | payer MEDICARE ==
[2025-01-02 13:29] LABS: International Normalized Ratio 1.05; Prothrombin Time Results 11.2 Sec (9.7-11.5)
[2025-01-02 15:22] LABS: Albumin, Blood 3.5 g/dL (3.4-5.0); Albumin/Globulin Ratio 0.9 (0.8-1.8); Bilirubin, Total 0.8 mg/dL (0.1-1.0); Bun/Creatinine Ratio 23.2 (12.0-20.0); Calcium, Blood 8.8 mg/dL (8.5-10.1); Creatinine, Blood 0.65 mg/dL (0.40-1.00); Globulin, Blood 3.7 g/dL (2.2-4.0); Potassium, Blood 3.7 mmol/L (3.5-5.5); Total Protein, Blood 7.2 g/dL (6.4-8.2)
== END | disposition home or self-care (01) ==
LOC: LAB SHORT 11:00 → LAB 11:00
PROVIDERS: Physician Assistant Medical
DX: K74.60 Unspecified cirrhosis of liver (principal); G40.909 Epilepsy, unspecified, not intractable, without status epilepticus; F02.80 Dementia in other diseases classified elsewhere, unspecified severity, without behavioral disturbance, psychotic disturbance, mood disturbance, and anxiety; I10 Essential (primary) hypertension; B19.20 Unspecified viral hepatitis C without hepatic coma
CPT/HCPCS: 80053; 85610

== ENCOUNTER 2025-01-29 19:09 | Observation (INO) | payer MEDICARE ==
[~2025-01-29] VITALS: Ht 149.9 cm; Wt 72.2 kg
[2025-01-29 19:43] LABS: BASOPHILS ABSOLUTE AUTO 0.06 K/mm3 (0.00-0.23); BASOPHILS PERCENT AUTO 1 % (0-2); EOSINOPHILS ABSOLUTE AUTO 0.12 K/mm3 (0.00-0.68); EOSINOPHILS PERCENT AUTO 2 % (0-6); Hematocrit 42.5 % (33.0-51.0); Hemoglobin 14.8 g/dL (11.5-16.0); IMMATURE GRAN ABSOLUTE AUTO 0.01 K/mm3 (0.00-0.10); IMMATURE GRAN PERCENT AUTO 0 % (0-1); LYMPHOCYTES ABSOLUTE AUTO 1.45 K/mm3 (0.84-5.20); LYMPHOCYTES PERCENT AUTO 23 % (21-46); MONOCYTES ABSOLUTE AUTO 0.55 K/mm3 (0.16-1.47); MONOCYTES PERCENT AUTO 9 % (4-13); Mean Corpuscular HGB 31.7 pg (26.0-34.0); Mean Corpuscular HGB Conc 34.8 g/dL (31.5-36.5); Mean Corpuscular Volume 91 fL (80-100); Mean Platelet Volume 9.9 fL (9.1-12.4); NEUTROPHILS ABSOLUTE AUTO 4.08 K/mm3 (1.96-9.15); NEUTROPHILS PERCENT AUTO 65 % (41-73); Platelet Count 142 K/mm3 (150-400); RDW Coefficient Variation 12.8 % (11.7-14.2); RDW Standard Deviation 42.7 fL (35.1-46.3); Red Blood Cell Count 4.67 M/mm3 (3.80-5.20); White Blood Cell Count 6.27 K/mm3 (4.00-11.30)
[2025-01-29 20:14] LABS: Albumin, Blood 3.9 g/dL (3.4-5.0); Albumin/Globulin Ratio 1.1 (0.8-1.8); Bilirubin, Total 1.4 mg/dL (0.1-1.0); Calcium, Blood 9.4 mg/dL (8.5-10.1); Creatinine, Blood 0.95 mg/dL (0.40-1.00); Globulin, Blood 3.6 g/dL (2.2-4.0); Potassium, Blood 3.5 mmol/L (3.5-5.5); Total Protein, Blood 7.5 g/dL (6.4-8.2)
[2025-01-29 20:14] LABS: Source, Urine Clean Catch
[2025-01-29 20:19] LABS: Appearance, Urine Clear (Clear); Bilirubin, Urine Neg (Neg); Blood, Urine Neg (Neg); Color, Urine Yellow (P-Yellow); Glucose Qualitative, Urine Neg (Neg); Ketones, Urine Neg (Neg); Leukocyte Esterase, Urine 2+ (Neg); Nitrite, Urine Neg (Neg); Protein, Urine 1+ (Neg); Urobilinogen, Urine NORM (Normal)
[2025-01-29 20:28] LABS: Bacteria Many /hpf; Red Blood Cells, Urine 0-2 /hpf (0-2); Squamous Epithelial Cells Few /hpf (Few)
[2025-01-29] MEDS ORDERED: CefTRIAXone Sodium 2,000 MG in NS 100 ML IV ONE (21:15)
[2025-01-29] MEDS ORDERED: Ondansetron HCl 2 MG / ML 2ML Vial IV PRN (22:50)
[2025-01-29] MEDS ORDERED: Acetaminophen 325 MG TABLET PO PRN (22:55)
[2025-01-29 23:49] LABS: Cholesterol 131 mg/dL (50-200); HDL Cholesterol 64 mg/dL (>39); LDL/HDL RATIO 0.8; Low Density Lipoprotein Chol 53 mg/dL (0-110); Triglycerides 70 mg/dL (30-160); Very Low Density Lipoprot Chol 14 mg/dL (6-32)
[2025-01-29] MEDS ORDERED: LEVE500 PO (23:51)
[2025-01-30 00:16] VITALS: BP 139/108
--- NOTE | 2025-01-30 00:34 | NUR ---
DURING BREAK COVERAGE FOR JASON GOULD, I ASSISTED WITH ADMISSION. I DISCUSSED WITH PT HER CODE STATUS - SHE REPORTED SHE HAD SPOKEN TO THE DRFrancisco AND WANTED DNR STATUS, BUT DURING MY CONVERSATION SHE REPORTED SHE WANTED FULL CODE STATUS. WHEN JASON GOULD RETURNED I UPDATED HER WITH THE ABOVE INFORMATION, SO SHE COULD GET CONFIRMATION FROM PT REGARDING HER CODE STATUS.
[2025-01-30 05:08] VITALS: BP 138/67
[2025-01-30 05:21] LABS: Hemoglobin 13.6 g/dL (11.5-16.0); Mean Corpuscular HGB 32.4 pg (26.0-34.0); Mean Corpuscular HGB Conc 34.9 g/dL (31.5-36.5); Mean Corpuscular Volume 93 fL (80-100); RDW Coefficient Variation 12.8 % (11.7-14.2); RDW Standard Deviation 43.7 fL (35.1-46.3); White Blood Cell Count 5.75 K/mm3 (4.00-11.30)
[2025-01-30 05:23] LABS: BASOPHILS ABSOLUTE AUTO 0.06 K/mm3 (0.00-0.23); BASOPHILS PERCENT AUTO 1 % (0-2); EOSINOPHILS ABSOLUTE AUTO 0.18 K/mm3 (0.00-0.68); EOSINOPHILS PERCENT AUTO 3 % (0-6); IMMATURE GRAN PERCENT AUTO 0 % (0-1); LYMPHOCYTES ABSOLUTE AUTO 1.76 K/mm3 (0.84-5.20); LYMPHOCYTES PERCENT AUTO 31 % (21-46); MONOCYTES ABSOLUTE AUTO 0.56 K/mm3 (0.16-1.47); MONOCYTES PERCENT AUTO 10 % (4-13); NEUTROPHILS ABSOLUTE AUTO 3.14 K/mm3 (1.96-9.15); NEUTROPHILS PERCENT AUTO 55 % (41-73)
[2025-01-30 05:35] LABS: Mean Platelet Volume 10.1 fL (9.1-12.4); Platelet Count 106 K/mm3 (150-400)
[2025-01-30 05:56] LABS: Albumin, Blood 3.4 g/dL (3.4-5.0); Albumin/Globulin Ratio 1.1 (0.8-1.8); Bun/Creatinine Ratio 20.2 (12.0-20.0); Calcium, Blood 8.6 mg/dL (8.5-10.1); Creatinine, Blood 0.89 mg/dL (0.40-1.00); Globulin, Blood 3.2 g/dL (2.2-4.0); Magnesium, Blood 2.1 mg/dL (1.6-2.4); Potassium, Blood 3.6 mmol/L (3.5-5.5); Thyroid Stimulating Hormone 2.28 uIU/mL (0.360-4.800); Total Protein, Blood 6.6 g/dL (6.4-8.2)
[2025-01-30] MEDS ORDERED: Omeprazole 20 MG CapCR PO SCH (06:00)
[2025-01-30] MEDS ORDERED: Pantoprazole Sodium 20 MG Tab PO SCH (06:00)
[2025-01-30 07:29] VITALS: BP 162/89
--- NOTE | 2025-01-30 08:23 | NUR ---
TRANSMISSION TESTER SUMMARY AFTER SEVERAL DISCUSSIONS, INITIATED BY PATIENT, SHE DECIDED SHE DOES WANT TO BE DNR BUT SHE WANTS TO CALL HER DAUGHTER IN THE MORNING AND LET HER KNOW. PT HAS BEEN VERY ANXIOUS SINCE ADMISSION. I OFFER TO CALL HER DOCTOR AND ASK FOR MEDICATION FOR HER ANXIETY BUT SHE DECLINED. SHE HAS BEEN ORIENTED X 4 BUT VERY PARANOID AND CONFIDED IN ME THAT SHE THOUGHT THE ER STAFF HAD BEEN TRYING TO KILL HER. SHE DOESNT WANT TO STAY IN THE HOSPITAL AND SHE REFUSED HAVING AN MRI DONE. SHE IS WILLING TO STAY IN THE HOSPITAL LONG ENOUGH TO SEE HER DOCTOR DURING MORNING ROUNDS BUT IS OTHERWISE HOPING TO BE DISCHARGED OR IS WANTING TO LEAVE AMA IF SHE IS NOT DISCHARGED. PT WAS FULLY EDUCATED ON HER PLAN OF CARE AND THE REASONS FOR HER ADMISSION BUT SHE IS NOT WILLING TO STAY.
[2025-01-30] MEDS ORDERED: Magnesium Oxide 400 MG Tab PO SCH (09:00)
[2025-01-30] MEDS ORDERED: Lactulose 20 GM/30 ML UDC PO SCH (09:00)
[2025-01-30] MEDS ORDERED: Furosemide 20 MG Tab PO SCH (09:00)
[2025-01-30] MEDS ORDERED: Lacosamide 50 MG Tablet PO SCH (09:00)
[2025-01-30] MEDS ORDERED: Losartan Potassium 50 MG Tab PO SCH (09:00)
[2025-01-30] MEDS ORDERED: Aspirin 81 MG Chew PO SCH (09:00)
[2025-01-30] MEDS ORDERED: Atorvastatin 40 MG Tab PO SCH (09:00)
[2025-01-30] MEDS ORDERED: Enoxaparin 40 MG/0.4 ML SYR SC SCH (09:00)
[2025-01-30] MEDS ORDERED: Lactobacil 2-S.Thermo-Bifido 1 1 Cap PO SCH (09:00)
[2025-01-30] MEDS ORDERED: Calcium/Vit D 600 mg-400 Unit Tab PO SCH (09:00)
[2025-01-30] MEDS ORDERED: Clopidogrel Bisulfate 75 MG Tab PO SCH (09:00)
[2025-01-30 10:55] VITALS: BP 179/87
[2025-01-30] MEDS ORDERED: ALPRAZolam 0.25 MG Tab PO ONE (11:20)
--- NOTE | 2025-01-30 14:48 | NUR ---
MET WITH PATIENT PER PROVIDERS REQUEST. SHE WAS SITTIN UP TO THE CHAIR AND SHAKING. SHE EXPRESSED SHE WAS VERY ANXIOUS, SHE WANTS TO GO HOME. SHE REPORTS HER MEMORY ISN'T RIGHT STILL. SHE DOES NOT LIKE BEING IN THE HOSPITAL. PROVIDED THERAPUTIC CONVERSATION, REQUESTED LISA, AND PLACED THERAPY DOG ORDERS.
[2025-01-30 16:07] VITALS: BP 130/77
[2025-01-30] MEDS ORDERED: ALPRAZolam 0.25 MG Tab PO PRN (16:25)
--- NOTE | 2025-01-30 16:50 | NUR ---
SHIFT SUMMARY PT AOX4, COOPERATIVE, ABLE TO MAKE NEEDS KNOWN. PT IN AMBULATORY SBA. ON TELE, IV RIGHT AC. 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 MD PLACED ORDERS FOR ANXIETY MEDICATION. GAVE ONE TIME ORDER EARLIER TODAY PER MD VERBAL ORDER, PT TOOK WITH TIME, REPORTED SHAKING STOPPED FOR "A BIT". CONTINUING TO REINFORCE PT IS HERE FOR ANTIBIOTICS. BED IN LOWEST POSITION, CALL LIGHT WITHIN REACH.
--- NOTE | 2025-01-30 16:53 | NUR ---
Spiritual care visit conducted. Patient is very emotional when I enter the room. She tells me about the family unit complications, the deaths of those that she cares about most and her desire to go home. She talks about her dtr and grandson and how proud she is of them and about how lonely and depressed she is. We explore sources of meaning, value and purpose. I reinforced helpful attitudes and practices and provided therapeutic listening and prayer. Patient responded well and showed signs reduced stress. I will continue to remain available to patient and family.
[2025-01-30 19:47] VITALS: BP 104/57
[2025-01-30] MEDS ORDERED: CefTRIAXone Sodium 1,000 MG in NS 100 ML IV SCH (21:00)
[2025-01-31] VITALS (7 sets, daily range): BP systolic 97–145; BP diastolic 50–78
--- NOTE | 2025-01-31 04:17 | NUR ---
SHIFT SUMMARY A&OX3,AFFECT FLAT, NO SEIZURE ACTIVITY NOTED OR OBSERVED, TOOK ALL MEDICATIONS ORDERED, REPORTED SOME DIZZINESS WHEN SAT EDGE OF BED, VSS. USED CALL LIGHT APPROPRIATELY. RECEIVED IV ANTIBIOTIC-EXPLAINED HAD A UTI ,PT WAS UNAWARE. REPORTS FORGETFULNESS. REPORTS A DECLINE IN HER HANDWRITING SINCE RECENT SEIZURE ACTIVITY AT HOME. FLUIDS ENCOURAGED, APP[employer]ITE [employer], ACCEPTED SNACKS AND FLUID. APPEARED TO REST FAIRLY WELL OVERNIGHT,AWAKE AT INTERVALS.
[2025-01-31 06:01] LABS: Hematocrit 38.5 % (33.0-51.0); Hemoglobin 13.3 g/dL (11.5-16.0); Mean Corpuscular HGB 31.9 pg (26.0-34.0); Mean Corpuscular HGB Conc 34.5 g/dL (31.5-36.5); Mean Corpuscular Volume 92 fL (80-100); Mean Platelet Volume 10.1 fL (9.1-12.4); Platelet Count 119 K/mm3 (150-400); RDW Coefficient Variation 12.6 % (11.7-14.2); Red Blood Cell Count 4.17 M/mm3 (3.80-5.20); White Blood Cell Count 5.29 K/mm3 (4.00-11.30)
[2025-01-31 06:32] LABS: Anion Gap 7 mmol/L (3-11); Blood Urea Nitrogen 21 mg/dL (8-24); Bun/Creatinine Ratio 24.2 (12.0-20.0); CHOL/HDL RATIO 1.8; CO2, Blood 28 mmol/L (21-32); Calcium, Blood 8.6 mg/dL (8.5-10.1); Chloride, Blood 108 mmol/L (98-108); Cholesterol 98 mg/dL (50-200); Creatinine, Blood 0.87 mg/dL (0.40-1.00); Glomerular Filtration Rate 70 (60-); Glucose, Blood 101 mg/dL (70-99); HDL Cholesterol 54 mg/dL (>39); LDL/HDL RATIO 0.7; Low Density Lipoprotein Chol 37 mg/dL (0-110); Potassium, Blood 3.8 mmol/L (3.5-5.5); Sodium, Blood 139 mmol/L (136-145); Triglycerides 34 mg/dL (30-160); Very Low Density Lipoprot Chol 6 mg/dL (6-32)
[2025-01-31] MEDS ORDERED: ALPRAZolam 0.25 MG Tab PO ONE (11:45)
[2025-01-31] MEDS ORDERED: ALBU90OI INH (12:46)
--- NOTE | 2025-01-31 15:23 | NUR ---
assumed care of pt pt is a/o x 4 very pleasent and has improved significantly since yesturday. pt does not believe we are going to kill her and is able to recall everything she was thinking the past couple of days. pt has no c/o pain and shows no s/s of distress.
[2025-02-01 04:38] VITALS: BP 139/67
[2025-02-01 08:43] VITALS: BP 148/80
[2025-02-01] MEDS ORDERED: SERT25 PO (13:49)
--- NOTE | 2025-02-01 14:51 | NUR ---
DISCHARGE SUMMARY PT DC THIS SHIFT DC INSTRUCTION GONE OVER WITH PT WHOM STATED UNDERSTANDING. PT WAS ESCORTED TO PRIVATE VEHICLE BY THIS NURSE.
--- NOTE | 2025-02-01 14:55 | NUR ---
ATTEMPTED TO CALL PT DAUGHTER GIOVANNI AT 1400 WITH DC INFORMATION PER PT REQUEST. NO ANSWER FROM GIOVANNI AND WAS UNABLE TO LEAVE A MESSAGE THE MAILBOX WAS FULL
== END 2025-02-01 14:14 | disposition home health service (06) ==
LOC: ER 19:09 → MEDS 19:10 → ERHOLD 19:10 → MEDS 01-30 00:10
PROVIDERS: Emergency Medicine; Internal Medicine; ADMIT Student in an Organized Health Care Education/Training Program
DX: R42 Dizziness and giddiness (principal); F41.9 Anxiety disorder, unspecified; I10 Essential (primary) hypertension; E78.5 Hyperlipidemia, unspecified; K21.9 Gastro-esophageal reflux disease without esophagitis; B19.20 Unspecified viral hepatitis C without hepatic coma; R56.9 Unspecified convulsions; K74.60 Unspecified cirrhosis of liver; D69.6 Thrombocytopenia, unspecified; Z88.0 Allergy status to penicillin; Z88.2 Allergy status to sulfonamides; Z88.8 Allergy status to other drugs, medicaments and biological substances; Z79.899 Other long term (current) drug therapy; Z87.891 Personal history of nicotine dependence
CPT/HCPCS: 36415; 70450; 70551; 80048; 80053; 80061; 81001; 82140; 83036; 83690; 83735; 84443; 84484; 85025; 85027; 87086; 93005; 93010; 93306; 96365; 96366; 96372; 96375; 99285-25; A9270; G0378; J0696; J1650; J2405; J2470

== ENCOUNTER 2025-02-08 17:48 | Emergency (ER) | payer MEDICARE ==
[~2025-02-08] VITALS: Ht 167.6 cm; Wt 65.8 kg
[~2025-02-08 17:48] MED LIST changes: +ALBU90OI INH; +LEVE500 PO; +SERT25 PO
[2025-02-08 18:20] LABS: BASOPHILS ABSOLUTE AUTO 0.04 K/mm3 (0.00-0.23); BASOPHILS PERCENT AUTO 0 % (0-2); EOSINOPHILS ABSOLUTE AUTO 0.01 K/mm3 (0.00-0.68); EOSINOPHILS PERCENT AUTO 0 % (0-6); Hematocrit 40.7 % (33.0-51.0); Hemoglobin 13.8 g/dL (11.5-16.0); IMMATURE GRAN ABSOLUTE AUTO 0.03 K/mm3 (0.00-0.10); IMMATURE GRAN PERCENT AUTO 0 % (0-1); LYMPHOCYTES ABSOLUTE AUTO 1.12 K/mm3 (0.84-5.20); LYMPHOCYTES PERCENT AUTO 13 % (21-46); MONOCYTES ABSOLUTE AUTO 0.79 K/mm3 (0.16-1.47); MONOCYTES PERCENT AUTO 9 % (4-13); Mean Corpuscular HGB 31.9 pg (26.0-34.0); Mean Corpuscular HGB Conc 33.9 g/dL (31.5-36.5); Mean Corpuscular Volume 94 fL (80-100); Mean Platelet Volume 10.3 fL (9.1-12.4); NEUTROPHILS ABSOLUTE AUTO 6.99 K/mm3 (1.96-9.15); NEUTROPHILS PERCENT AUTO 78 % (41-73); Platelet Count 144 K/mm3 (150-400); Red Blood Cell Count 4.32 M/mm3 (3.80-5.20); White Blood Cell Count 8.98 K/mm3 (4.00-11.30)
[2025-02-08 18:42] LABS: Albumin/Globulin Ratio 1.2 (0.8-1.8); Bilirubin, Total 1.7 mg/dL (0.1-1.0); Bun/Creatinine Ratio 19.3 (12.0-20.0); Calcium, Blood 9.6 mg/dL (8.5-10.1); Creatinine, Blood 0.83 mg/dL (0.40-1.00); Globulin, Blood 3.3 g/dL (2.2-4.0); Magnesium, Blood 2.4 mg/dL (1.6-2.4); Phosphorus, Blood 3.6 mg/dL (2.5-4.9); Potassium, Blood 4.1 mmol/L (3.5-5.5); Total Protein, Blood 7.3 g/dL (6.4-8.2)
[2025-02-08 19:12] LABS: Source, Urine Clean Catch
[2025-02-08 19:21] LABS: Appearance, Urine Clear (Clear); Bilirubin, Urine Neg (Neg); Blood, Urine Neg (Neg); Color, Urine Yellow (P-Yellow); Glucose Qualitative, Urine Neg (Neg); Ketones, Urine Neg (Neg); Leukocyte Esterase, Urine 1+ (Neg); Nitrite, Urine Neg (Neg); Protein, Urine Neg (Neg); Urobilinogen, Urine NORM (Normal)
[2025-02-08 19:30] LABS: Red Blood Cells, Urine 0-2 /hpf (0-2)
[2025-02-08 19:31] LABS: Bacteria Few /hpf; Squamous Epithelial Cells Rare /hpf (Few); Transitional Epithelial Cells Rare /hpf (0-Rare)
[2025-02-09 10:30] VITALS: BP 146/83
[2025-02-09] MEDS ORDERED: LORazepam 2 MG/ML 1ML Injection IV ONE (10:35)
== END 2025-02-09 14:39 | disposition home or self-care (01) ==
LOC: ER 17:48
PROVIDERS: Student in an Organized Health Care Education/Training Program
DX: R41.0 Disorientation, unspecified (principal); I11.0 Hypertensive heart disease with heart failure; I50.30 Unspecified diastolic (congestive) heart failure; K21.9 Gastro-esophageal reflux disease without esophagitis; Z87.891 Personal history of nicotine dependence; Z86.73 Personal history of transient ischemic attack (TIA), and cerebral infarction without residual deficits; Z79.82 Long term (current) use of aspirin; Z88.0 Allergy status to penicillin; Z88.2 Allergy status to sulfonamides; Z88.1 Allergy status to other antibiotic agents; Z88.8 Allergy status to other drugs, medicaments and biological substances
CPT/HCPCS: 70450; 74177; 80053; 81001; 82140; 83735; 84100; 84484; 85025; 87086; 93005; 93010; 96374-59; 99285-25; J2060; Q9967

== ENCOUNTER 2025-05-11 13:07 | Emergency (ER) | payer MEDICARE ==
[~2025-05-11] VITALS: Ht 149.9 cm; Wt 69.4 kg
[~2025-05-11 13:07] MED LIST changes: +CEPH500 PO; +Flagyl500 MG PO
[2025-05-11 13:33] LABS: BASOPHILS ABSOLUTE AUTO 0.03 K/mm3 (0.00-0.23); BASOPHILS PERCENT AUTO 1 % (0-2); EOSINOPHILS ABSOLUTE AUTO 0.09 K/mm3 (0.00-0.68); EOSINOPHILS PERCENT AUTO 3 % (0-6); Hematocrit 39.0 % (33.0-51.0); Hemoglobin 12.6 g/dL (11.5-16.0); IMMATURE GRAN ABSOLUTE AUTO 0.01 K/mm3 (0.00-0.10); IMMATURE GRAN PERCENT AUTO 0 % (0-1); LYMPHOCYTES ABSOLUTE AUTO 0.68 K/mm3 (0.84-5.20); LYMPHOCYTES PERCENT AUTO 19 % (21-46); MONOCYTES ABSOLUTE AUTO 0.24 K/mm3 (0.16-1.47); MONOCYTES PERCENT AUTO 7 % (4-13); Mean Corpuscular HGB Conc 32.3 g/dL (31.5-36.5); Mean Corpuscular Volume 98 fL (80-100); NEUTROPHILS ABSOLUTE AUTO 2.52 K/mm3 (1.96-9.15); NEUTROPHILS PERCENT AUTO 71 % (41-73); NRBC ABSOLUTE 0.00 K/mm3 (0.00-0.02); NRBC Auto 0.0 /100 WBC (0.0-0.2); Platelet Count 94 K/mm3 (150-400); RDW Coefficient Variation 13.1 % (11.7-14.2); RDW Standard Deviation 46.5 fL (35.1-46.3)
[2025-05-11 14:11] LABS: Alanine Aminotransfer (ALT/SGP 57.0 U/L (12-78); Albumin, Blood 3.2 g/dL (3.4-5.0); Albumin/Globulin Ratio 0.9 (0.8-1.8); Anion Gap 4.0 mmol/L (3-11); Aspartate Aminotrans (AST/SGOT 58.0 U/L (12-37); Bilirubin, Total 0.7 mg/dL (0.1-1.0); Blood Urea Nitrogen 12.0 mg/dL (8-24); CO2, Blood 24.0 mmol/L (21-32); Calcium, Blood 8.2 mg/dL (8.5-10.1); Chloride, Blood 112.0 mmol/L (98-108); Creatinine, Blood 0.6 mg/dL (0.40-1.00); Globulin, Blood 3.4 g/dL (2.2-4.0); Glucose, Blood 154.0 mg/dL (70-99); Potassium, Blood 4.3 mmol/L (3.5-5.5); Sodium, Blood 136.0 mmol/L (136-145); Total Protein, Blood 6.6 g/dL (6.4-8.2)
[2025-05-11 14:49] LABS: Source, Urine Clean Catch
[2025-05-11] MEDS ORDERED: Keppra250 MG PO (14:50)
[2025-05-11 14:55] LABS: Bilirubin, Urine Neg (Neg); Color, Urine Yellow (P-Yellow); Glucose Qualitative, Urine Neg (Neg); Ketones, Urine Neg (Neg); Leukocyte Esterase, Urine Neg (Neg); Protein, Urine 2+ (Neg); Specific Gravity, Urine 1.015 (1.003-1.022); Urobilinogen, Urine 1+ (Normal)
[2025-05-11 15:05] LABS: Red Blood Cells, Urine 0-2 /hpf (0-2)
[2025-05-11 16:53] LABS: Bacterial Vaginosis PCR Negative (NEGATIVE); Candida Group, PCR NOT DETECTED (NOT DETECT); Candida glabrata-krusei, PCR NOT DETECTED (NOT DETECT)
[2025-05-11 17:00] VITALS: BP 132/73
== END 2025-05-11 19:00 | disposition home or self-care (01) ==
LOC: ER 13:07
PROVIDERS: Student in an Organized Health Care Education/Training Program
DX: R41.0 Disorientation, unspecified (principal); I48.0 Paroxysmal atrial fibrillation
CPT/HCPCS: 70450; 80053; 81001; 81515; 83690; 85025; 93005; 93010; 99285-25; A9270